=== PATIENT | male | born 1960 | race Caucasian/White ===

== ENCOUNTER → 2019-08-26 14:53 | Outpatient (BNVA) | payer MEDICARE, MEDICAID, SELFPAY | PROVIDERS: Family Provider Nurse Practitioner Family; PCP Nurse Practitioner Family; Visit Provider Anesthesiology | DX: G89.29 Other chronic pain (principal); M48.062 Spinal stenosis, lumbar region with neurogenic claudication; F17.210 Nicotine dependence, cigarettes, uncomplicated; Z79.891 Long term (current) use of opiate analgesic; Z71.6 Tobacco abuse counseling | CPT/HCPCS: 99214 ==

== ENCOUNTER → 2019-10-16 11:00 | Outpatient (BNVA) | payer MEDICARE, MEDICAID, SELFPAY | PROVIDERS: Family Provider Nurse Practitioner Family; PCP Nurse Practitioner Family; Visit Provider Nurse Practitioner Family | DX: E11.9 Type 2 diabetes mellitus without complications (principal); E78.2 Mixed hyperlipidemia; I10 Essential (primary) hypertension; S89.91XA Unspecified injury of right lower leg, initial encounter; M79.672 Pain in left foot; B37.2 Candidiasis of skin and nail; E55.9 Vitamin D deficiency, unspecified; M77.32 Calcaneal spur, left foot; Z96.651 Presence of right artificial knee joint | CPT/HCPCS: 73590; 73630; 80053; 80061; 81001; 82306; 83036; 84443; 85025 ==

== ENCOUNTER → 2019-12-03 10:55 | Outpatient (BNVA) | payer MEDICARE, MEDICAID, SELFPAY | PROVIDERS: Family Provider Nurse Practitioner Family; PCP Nurse Practitioner Family; Visit Provider Nurse Practitioner Family | DX: S46.911A Strain of unspecified muscle, fascia and tendon at shoulder and upper arm level, right arm, initial encounter (principal); S39.012A Strain of muscle, fascia and tendon of lower back, initial encounter; M54.9 Dorsalgia, unspecified; G89.29 Other chronic pain; L98.9 Disorder of the skin and subcutaneous tissue, unspecified; X58.XXXA Exposure to other specified factors, initial encounter | CPT/HCPCS: 73030 ==

== ENCOUNTER → 2019-12-16 09:56 | Outpatient (BNVA) | payer MEDICARE, MEDICAID, SELFPAY | PROVIDERS: Family Provider Nurse Practitioner Family; PCP Nurse Practitioner Family; Visit Provider Nurse Practitioner | DX: G89.29 Other chronic pain (principal); M54.42 Lumbago with sciatica, left side; M54.41 Lumbago with sciatica, right side; M48.062 Spinal stenosis, lumbar region with neurogenic claudication; M54.9 Dorsalgia, unspecified; F17.210 Nicotine dependence, cigarettes, uncomplicated; Z79.891 Long term (current) use of opiate analgesic; Z71.6 Tobacco abuse counseling | CPT/HCPCS: 99214 ==

== ENCOUNTER → 2019-12-24 14:00 | Outpatient (BNVA) | payer MEDICARE, MEDICAID, SELFPAY | PROVIDERS: Family Provider Nurse Practitioner Family; PCP Nurse Practitioner Family; Visit Provider Nurse Practitioner Family | DX: L08.9 Local infection of the skin and subcutaneous tissue, unspecified (principal); M79.5 Residual foreign body in soft tissue | CPT/HCPCS: 87070; 87077; 87186 ==

== ENCOUNTER 2019-12-25 15:18 | Outpatient (CLI) | payer MEDICARE, MEDICAID, SELFPAY ==
--- NOTE | 2019-12-25 16:00 | MR_ITS ---
WS: [id number] MRI LUMBAR SPINE NONCONTRAST TECHNIQUE: Sagittal T1, T2 and STIR imaging. Axial T1 and T2 imaging. CLINICAL INFORMATION: M48.062 Spinal stenosis, lumbar region with neurogenic cl... COMPARISON: None. FINDINGS: Mild lumbar curve. No acute compression. Disc bulging L2-L3, L3-L4, and L4-L5 with central canal sten osis. L1-L2: No significant disc bulging. Spinal canal and foramen are patent. Mild facet arthropathy. L2-L3: Mild disc bulging with moderate to severe central canal stenosis. Crowding of the cauda equina nerve rootlets. Mild bilateral foraminal narrowing. Moderate facet arthropathy. L3-L4: Disc osteophyte complex with endplate ridging. Severe central canal stenosis. Moderate facet a rthropathy. Moderate right and no significant left foraminal narrowing. L4-L5: Mild disc bulging with impingement on the traversing L5 nerve roots bilaterally. Moderate cent ral canal stenosis. Moderate facet arthropathy. Moderate left and mild right foraminal narrowing. L5-S1: Mild disc bulging with osteophytic ridging. Mild central canal stenosis. Impingement on the tr aversing right S1 nerve root. Mild right and no significant left foraminal narrowing. Visualized pelvic bony structures: Normal. Paravertebral soft tissues: Normal. MR/MR lumbar spine wo con* [id number] IMPRESSION: 1. Mild lumbar curve. No acute compression. 2. Moderate to severe central canal stenosis L2-L3, L3-L4 and L4-L5. This is s evere at L3-4. Crowding of the cauda equina nerve rootlets. 3. Mild central canal stenosis L5-S1 with impingement on the right S1 nerve ro ot and mild right foraminal narrowing. 4. Moderate left L4-5 foraminal narrowing impinges the exiting left L4 nerve r oot. 5. Moderate to advanced facet arthropathy L3-L5.
== END 2019-12-25 15:19 | disposition home or self-care (01) ==
LOC: RADSHAW 15:24
PROVIDERS: PCP Nurse Practitioner Family; Visit Provider Nurse Practitioner
DX: M48.062 Spinal stenosis, lumbar region with neurogenic claudication (principal); M48.07 Spinal stenosis, lumbosacral region; M47.816 Spondylosis without myelopathy or radiculopathy, lumbar region
CPT/HCPCS: 72148

== ENCOUNTER → 2020-02-10 10:04 | Outpatient (BNVA) | payer MEDICARE, MEDICAID, SELFPAY | PROVIDERS: PCP Nurse Practitioner Family; Visit Provider Nurse Practitioner | DX: G89.29 Other chronic pain (principal); M48.062 Spinal stenosis, lumbar region with neurogenic claudication; M54.9 Dorsalgia, unspecified; F17.210 Nicotine dependence, cigarettes, uncomplicated; Z79.891 Long term (current) use of opiate analgesic | CPT/HCPCS: 99213; 99214 ==

== ENCOUNTER → 2020-02-11 14:56 | Outpatient (BNVA) | payer MEDICARE, MEDICAID, SELFPAY | PROVIDERS: PCP Nurse Practitioner Family; Visit Provider Nurse Practitioner Family | DX: E11.9 Type 2 diabetes mellitus without complications (principal); I10 Essential (primary) hypertension; E78.2 Mixed hyperlipidemia; E55.9 Vitamin D deficiency, unspecified; R06.02 Shortness of breath; J22 Unspecified acute lower respiratory infection; H60.90 Unspecified otitis externa, unspecified ear; J30.89 Other allergic rhinitis; H10.9 Unspecified conjunctivitis; H10.10 Acute atopic conjunctivitis, unspecified eye; R42 Dizziness and giddiness | CPT/HCPCS: 71046; 80053; 80061; 81003; 82306; 83036; 83735; 84100; 84443; 85007; 85027 ==

== ENCOUNTER → 2020-03-16 13:38 | Outpatient (BNVA) | payer MEDICARE, MEDICAID, SELFPAY | PROVIDERS: PCP Nurse Practitioner Family; Referring Provider Nurse Practitioner Family; Visit Provider Internal Medicine | DX: E11.22 Type 2 diabetes mellitus with diabetic chronic kidney disease (principal); N18.2 Chronic kidney disease, stage 2 (mild); E11.42 Type 2 diabetes mellitus with diabetic polyneuropathy; E11.59 Type 2 diabetes mellitus with other circulatory complications; I25.10 Atherosclerotic heart disease of native coronary artery without angina pectoris; E66.9 Obesity, unspecified; E78.5 Hyperlipidemia, unspecified; I10 Essential (primary) hypertension | CPT/HCPCS: 99204 ==

== ENCOUNTER → 2020-04-13 08:28 | Outpatient (BNVA) | payer MEDICARE, MEDICAID, SELFPAY | PROVIDERS: PCP Nurse Practitioner Family; Visit Provider Anesthesiology | DX: G89.29 Other chronic pain (principal); M48.062 Spinal stenosis, lumbar region with neurogenic claudication; M54.9 Dorsalgia, unspecified; F17.210 Nicotine dependence, cigarettes, uncomplicated; Z79.891 Long term (current) use of opiate analgesic | CPT/HCPCS: 99213; 99214 ==

== ENCOUNTER → 2020-06-15 08:55 | Outpatient (BNVA) | payer MEDICARE, MEDICAID, SELFPAY | PROVIDERS: PCP Nurse Practitioner Family; Visit Provider Anesthesiology | DX: G89.29 Other chronic pain (principal); M48.062 Spinal stenosis, lumbar region with neurogenic claudication; M54.9 Dorsalgia, unspecified; F17.210 Nicotine dependence, cigarettes, uncomplicated; Z79.891 Long term (current) use of opiate analgesic | CPT/HCPCS: 99213 ==

== ENCOUNTER → 2020-08-13 10:09 | Outpatient (BNVA) | payer MEDICARE, MEDICAID, SELFPAY | PROVIDERS: PCP Nurse Practitioner Family; Visit Provider Nurse Practitioner | DX: G89.29 Other chronic pain (principal); M25.511 Pain in right shoulder; M25.512 Pain in left shoulder; M54.9 Dorsalgia, unspecified; M54.2 Cervicalgia; M48.062 Spinal stenosis, lumbar region with neurogenic claudication; S13.4XXA Sprain of ligaments of cervical spine, initial encounter; X58.XXXA Exposure to other specified factors, initial encounter; F17.210 Nicotine dependence, cigarettes, uncomplicated; Z79.891 Long term (current) use of opiate analgesic; Z71.6 Tobacco abuse counseling | CPT/HCPCS: 99213 ==

== ENCOUNTER 2020-08-19 09:29 | Outpatient (CLI) | payer MEDICARE, MEDICAID, SELFPAY ==
--- NOTE | 2020-08-19 09:30 | XR_ITS ---
WS: [id number] CERVICAL SPINE 6 VIEWS HISTORY: M79.601 - Pain in right arm COMPARISON: None available. TECHNIQUE: AP, oblique and lateral radiographs. Lateral in neutral, flexion and extension. 2 mm retrolisthesis of C3. No fractures. Mild disc space narrowing and endplate hypertrophic osteophy mayela. No fractures. With flexion and extension there is no instability. Bilateral facet joint arthriti s. Lateral masses of C1 and C2 are aligned and the odontoid process is intact. XR/XR cervical spine 4-5V [id number] IMPRESSION: 1. No cervical spine fracture or instability. 2. C3 retrolisthesis by 2 mm with no instability.
--- NOTE | 2020-08-19 10:30 | XR_ITS ---
WS: [id number] LEFT SHOULDER: 3 VIEW(S) TECHNIQUE: Internal and external rotation with Y view. HISTORY: M25.511 - Pain in right shoulder COMPARISON: None available. Moderate narrowing of the AC joint with numerous anchors are present in the humeral head from rotator cuff repair. Mildly high riding humeral head with mild narrowing of the glenohumeral joint. XR/XR shoulder LT min 2V* [id number] IMPRESSION: 1. Numerous anchors in the LEFT humeral head from prior rotator cuff repair. 2. Moderate AC joint and glenohumeral joint arthritis. 3. Prior CABG.
--- NOTE | 2020-08-19 11:00 | XR_ITS ---
WS: [id number] RIGHT SHOULDER: 3 VIEW(S) TECHNIQUE: Internal and external rotation with Y view. HISTORY: M25.511 - Pain in right shoulder COMPARISON: 12/03/2019 Moderate narrowing of the RIGHT AC joint with hypertrophic osteophytes extending superior and inferio r from the joint line. Humeral head is high riding nearly abutting the undersurface of the acromion. Mild narrowing of the g lenohumeral joint. XR/XR shoulder RT min 2V* [id number] IMPRESSION: 1. Moderate osteoarthritis at the RIGHT AC joint is similar to prior studies. 2. High riding humeral head indicating likelihood of rotator cuff tear. Simila r to the prior study.
== END 2020-08-19 09:30 | disposition home or self-care (01) ==
PROVIDERS: PCP Nurse Practitioner Family; Visit Provider Nurse Practitioner
DX: M79.601 Pain in right arm (principal); M79.602 Pain in left arm; M25.511 Pain in right shoulder; M25.512 Pain in left shoulder; M19.011 Primary osteoarthritis, right shoulder; Z95.1 Presence of aortocoronary bypass graft
CPT/HCPCS: 72050; 73030

== ENCOUNTER 2020-09-16 15:56 | Outpatient (CLI) | payer MEDICARE, MEDICAID, SELFPAY ==
--- NOTE | 2020-09-16 16:45 | MR_ITS ---
WS: [id number] MRI RIGHT SHOULDER HISTORY: PAIN IN RIGHT SHOULDER COMPARISON: None available. TECHNIQUE: Multiplanar sequences of the shoulder joint are submitted. Severe degenerative changes at the AC joint. Hypertrophic osteophytes with joint space narrowing. Flu id along the AC ligament. Osteophytes encroach upon the supraspinatus muscle and tendon. Osteophytes actually above the humeral head. Humeral head is high riding with remodeling of the acromion. Numerou s subchondral cystic changes in the posterior lateral humeral head. No os acromion. Biceps tendon is not identified in the bicipital groove. Complete tear of the supraspinatus tendon. Tendon is retracted medial to the humeral head and there a re cystic changes along the remaining subscapularis tendon. There is edema and severe atrophy of the supraspinatus muscle. Cannot identify the subscapularis tendon distally. There is a large amount of e hipolito and fluid surrounding the distal subscapularis tendon with atrophy of the muscle. Distal infrasp inatus tendon is probably intact although there is fluid along the tendon sheath. Teres minor is norm al. Complete loss of the cartilage. The glenoid is diffusely abnormal. MR/MR shoulder RT wo con* [id number] IMPRESSION: 1. Severe AC joint and glenohumeral joint arthritis with loss of joint space a nd cartilage. 2. High riding humeral head abutting the acromion and causing remodeling. 3. Complete tears of the supraspinatus and subscapularis tendons with retracti on and muscle atrophy. 4. Loss of the normal labrum. 5. Biceps tendon is torn or dislocated.
--- NOTE | 2020-09-16 17:30 | MR_ITS ---
WS: [id number] MRI CERVICAL SPINE NONCONTRAST HISTORY: CERVICAL DISC DISORDER, UNSPECIFIED COMPARISON: 12/27/2017 Technique: Multiplanar, multisequence noncontrast imaging of the cervical spine. Normal cervical alignment. No marrow edema or fracture. Disc spaces are mildly desiccated throughout the cervical spine. No inferior displacement of cerebell ar tonsils. Mild enlargement of the visualized ventricles. Craniocervical junction, C1 and C2 relationship, odontoid process and soft tissues are normal. C2-C3: Very mild LEFT foraminal narrowing due to osteophyte disease. C3-C4: Mild disc bulging with slight effacement of the ventral thecal sac. Mild LEFT foraminal narrow ing due to osteophyte disease. C4-C5: Diffuse annular disc bulging with a tiny central disc protrusion. Facet joint arthritis and os teophytes causing mild central and bilateral foraminal stenosis. C5-C6: Mild annular disc bulging is slightly asymmetric to the LEFT. Flattening of the ventral CSF. M ild central and bilateral foraminal stenosis, greater on the LEFT. C6-C7: Diffuse annular disc bulging with disc osteophytes. Mild central stenosis with mild to moderat e bilateral foraminal stenosis. C7-T1: Mild annular disc bulging and osteophytic ridging. No significant stenosis. Paraspinal soft tissue are normal. MR/MR cervical spin wo con* [id number] IMPRESSION: 1. No significant progression of degenerative spondylitic changes in the cervi joseph spine since 12/27/2017. 2. Mild to moderate bilateral foraminal stenosis at C6-7 with mild central ilene nosis. 3. Mild central and bilateral foraminal stenosis at C4-5 and C5-6. 4. Mild LEFT foraminal stenosis at C3-4.
== END 2020-09-16 15:57 | disposition home or self-care (01) ==
PROVIDERS: PCP Nurse Practitioner Family; Visit Provider Nurse Practitioner
DX: M50.90 Cervical disc disorder, unspecified, unspecified cervical region (principal); M48.02 Spinal stenosis, cervical region; M75.121 Complete rotator cuff tear or rupture of right shoulder, not specified as traumatic; M13.811 Other specified arthritis, right shoulder
CPT/HCPCS: 72141; 73221

== ENCOUNTER → 2020-09-22 11:36 | Outpatient (BNVA) | payer MEDICARE, MEDICAID, SELFPAY | PROVIDERS: PCP Nurse Practitioner Family; Visit Provider Nurse Practitioner Family | DX: E11.9 Type 2 diabetes mellitus without complications (principal); I10 Essential (primary) hypertension; E78.2 Mixed hyperlipidemia; E55.9 Vitamin D deficiency, unspecified; F33.1 Major depressive disorder, recurrent, moderate; Z12.5 Encounter for screening for malignant neoplasm of prostate | CPT/HCPCS: 80053; 80061; 81003; 82306; 83036; 83735; 84100; 84443; 85025; G0103 ==

== ENCOUNTER → 2020-09-28 10:34 | Outpatient (BNVA) | payer MEDICARE, MEDICAID, SELFPAY | PROVIDERS: PCP Nurse Practitioner Family; Visit Provider Nurse Practitioner Family | DX: E11.9 Type 2 diabetes mellitus without complications (principal); F17.210 Nicotine dependence, cigarettes, uncomplicated; Z12.11 Encounter for screening for malignant neoplasm of colon; E55.9 Vitamin D deficiency, unspecified | CPT/HCPCS: 81003; 82043 ==

== ENCOUNTER → 2020-09-30 13:18 | Outpatient (BNVA) | payer MEDICARE, MEDICAID, SELFPAY | PROVIDERS: PCP Nurse Practitioner Family; Visit Provider Nurse Practitioner Family | DX: M48.062 Spinal stenosis, lumbar region with neurogenic claudication (principal); M47.896 Other spondylosis, lumbar region | CPT/HCPCS: 72114 ==

== ENCOUNTER → 2020-10-07 10:46 | Outpatient (BNVA) | payer MEDICARE, MEDICAID, SELFPAY | PROVIDERS: PCP Nurse Practitioner Family; Visit Provider Nurse Practitioner | DX: G89.29 Other chronic pain (principal); M54.9 Dorsalgia, unspecified; M25.511 Pain in right shoulder; S13.4XXA Sprain of ligaments of cervical spine, initial encounter; M79.601 Pain in right arm; M79.602 Pain in left arm; M48.062 Spinal stenosis, lumbar region with neurogenic claudication; X58.XXXA Exposure to other specified factors, initial encounter; F17.210 Nicotine dependence, cigarettes, uncomplicated; Z79.891 Long term (current) use of opiate analgesic | CPT/HCPCS: 99213 ==

== ENCOUNTER → 2020-10-12 15:05 | Outpatient (BNVA) | payer MEDICARE, MEDICAID, SELFPAY | PROVIDERS: PCP Nurse Practitioner Family; Visit Provider Internal Medicine | DX: Z01.812 Encounter for preprocedural laboratory examination (principal); Z12.11 Encounter for screening for malignant neoplasm of colon; F17.210 Nicotine dependence, cigarettes, uncomplicated | CPT/HCPCS: 87635 ==

== ENCOUNTER 2020-10-18 07:26 | Day surgery (SDC) | payer MEDICARE, MEDICAID, SELFPAY ==
--- NOTE | 2020-10-18 07:42 | ANES.PREANE2 ---
Pre-Anesthetic Assessment Pre-Anesthetic Assessment: Height/Weight: Height 1.85 m Weight 103.419 kg Preop Diagnosis: Screening Proposed Procedure: Operation Date: 10/18/20 09:00 Proposed Procedures p Colonoscopy g0121 z12.11(Not Applicable) - Chavo Chahal MD Familial anesthetic complications: None Was Beta Lucero taken within 24 hours: Yes (take carvedilol at 1000 or 1100, took it last night) Was Clonidine taken within 24 hours: N/A Last intake: NPO > 8 hrs Social: Social History: Tobacco Exam: Pre-Anes Outpt Exam: alert, oriented x 3, clear to auscultation bilaterally and regular rate & rhythm Airway: Cervical ROM: WNL MP: 2 Dentition: False Pulmonary: Pulmonary: COPD (mild) CV/HEM: CV/HEM: CAD and HTN Comments: CABG 2005 - : : Chronic renal Insufficiency Metabolic: Metabolic: Hyperlipidemia Musc/skel: Musc/skel: Lower Back Pain Comments: b/l shoulder pain - willl have patient move onto side and get in comfortable position before inducing anesthesia to reduce risk MSK injury Anesthetic Plan: ASA status: 3 Anesthesia: MAC Risk of > 500 ml blood loss (7ml/kg in children): No PFSH Anesthesia PFSH: Medical History Aortic cusp regurgitation Burn of finger CAD (coronary artery disease) Cauda equina compression Changing skin lesion Chronic back pain Chronic idiopathic constipation Colon cancer screening COPD (chronic obstructive pulmonary disease) Diabetes mellitus Diabetic neuropathy Encounter for long-term opiate analgesic use Environmental and seasonal allergies GERD (gastroesophageal reflux disease) Hyperlipidemia associated with type 2 diabetes mellitus Hypertension Mixed hyperlipidemia Shortness of breath Spinal stenosis, lumbar region with neurogenic claudication Tobacco dependence due to cigarettes Vitamin D deficiency Surgical History H/O total knee replacement total knee right 2017 total knee left 2017 Previous back surgery S/P CABG (coronary artery bypass graft) 2005 S/P shoulder surgery left shoulder 2007 Family History Father CAD (coronary artery disease) Cancer lung Mother Cancer breast Denies family history of Anesthesia complication Social History Smoking and tobacco status: current every day smoker cigarettes Packs smoked per day: 1 Years cigarettes smoked: 12 Quit status (tobacco): considering quitting Second hand smoke exposure: Yes Smoking risk assessment/counseling performed?: No Alcohol intake: never Desire information about alcohol rehabilitation?: No Counseling given: No Desire information about substance/drug rehabilitation?: No Counseling given: No Lives independently: Yes Household members: significant other History of recent travel: No Data Anesthesia Cardiac Studies: No Data to Display
[2020-10-18 08:12] VITALS: BP 120/68; PULSE 63; RESP 18; TEMP 36.1; O2SAT 97
[2020-10-18] MEDS: sodium chloride 0.9% 1,000 ML 30 ML IV (08:18)
[2020-10-18 08:23] LABS: Glucose Point of Care 309 mg/dL (70-110)
--- NOTE | 2020-10-18 08:54 | W.PM.OPSFHP ---
Same Day Surgery H&P Indication for Procedure/HPI DATE OF PROCEDURE: October 18, 2020 CHIEF COMPLAINT/INDICATIONFOR SURGICAL PROCEDURE: Routine screening average risk PREOP DIAGNOSIS: screen PLANNED PROCEDRUE: Operation Date: 10/18/20 09:00 Proposed Procedures p Colonoscopy g0121 z12.11(Not Applicable) - Chavo Chahal MD Medications/Allergies* Home Medications Medication Instructions Recorded Confirmed Type aspirin 81 mg tablet,delayed 81 mg PO DAILY 09/21/20 10/15/20 History release duloxetine 60 mg capsule,delayed 60 mg PO DAILY 09/21/20 10/18/20 History release sprinkle semaglutide 3 mg tablet 3 mg PO DAILY 09/28/20 10/18/20 History omeprazole 40 mg capsule,delayed 40 mg PO DAILY 10/07/20 10/18/20 History release Allergies/Adverse Reactions Allergy/AdvReac Type Severity Reaction Status Date / Time Penicillins Allergy Intermediate rash Verified 10/18/20 08:04 codeine Allergy Mild rash Verified 10/18/20 08:04 cefazolin Allergy Unknown rash Verified 10/18/20 08:04 Current Medications: Generic Name Dose Route Start Last Admin Trade Name Freq PRN Reason Stop Dose Admin Sodium Chloride 1,000 mls @ 30 mls/hr 10/18/20 08:00 10/18/20 08:18 Sodium Chloride 0.9% IV 30 mls/hr .Q24H SCOTTY Administration Pertinent History/Comorbid Conditions* Medical History (Updated 10/14/20 @ 13:22 by Martinez Wu MD) Aortic cusp regurgitation Burn of finger CAD (coronary artery disease) Cauda equina compression Changing skin lesion Chronic back pain Chronic idiopathic constipation Colon cancer screening COPD (chronic obstructive pulmonary disease) Diabetes mellitus Diabetic neuropathy Encounter for long-term opiate analgesic use Environmental and seasonal allergies GERD (gastroesophageal reflux disease) Hyperlipidemia associated with type 2 diabetes mellitus Hypertension Mixed hyperlipidemia Shortness of breath Spinal stenosis, lumbar region with neurogenic claudication Tobacco dependence due to cigarettes Vitamin D deficiency Surgical History (Updated 03/16/20 @ 14:15 by Silvana Adkins MD) H/O total knee replacement total knee right 2017 total knee left 2016 Previous back surgery S/P CABG (coronary artery bypass graft) 2005 S/P shoulder surgery left shoulder 2007 Family History (Updated 03/16/20 @ 13:51 by Justina Berger LPN) Father CAD (coronary artery disease) Father Cancer Father lung Mother breast Denies family history of Anesthesia complication Social History Smoking and tobacco status: current every day smoker cigarettes Packs smoked per day: 1 Years cigarettes smoked: 12 Quit status (tobacco): considering quitting Second hand smoke exposure: Yes Smoking risk assessment/counseling performed?: No Alcohol intake: never Desire information about alcohol rehabilitation?: No Counseling given: No Desire information about substance/drug rehabilitation?: No Counseling given: No Lives independently: Yes Household members: significant other History of recent travel: No Pertinent Exam Findings alert, oriented x 3, clear to auscultation bilaterally, regular rate & rhythm, operative site marked and procedure specific exam findings Recommendations Surgery/Procedure today Coding Level of Care Code 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
[2020-10-18 10:44] VITALS: BP 102/66; PULSE 68; RESP 16; TEMP 36.3; O2SAT 95
--- NOTE | 2020-10-18 10:47 | ANE.PACU2 ---
Inpatient post-anesthesia follow up: Airway intact: Yes Vital signs: Temperature 96.9 F Pulse Rate 63 Respiratory Rate 18 Blood Pressure 120/68 Pulse Oximetry 97 Oxygen Delivery Me thod Room Air Oxygen Flow Rate Fraction of Inspir ed Oxygen Hydration adequate: Yes Nausea and vomiting: No Pain level: 1 Mental status: Baseline
[2020-10-18 10:59] VITALS: BP 148/85; PULSE 62; RESP 18; TEMP 36.5; O2SAT 96
== END 2020-10-18 11:22 | disposition home or self-care (01) ==
PROVIDERS: PCP Nurse Practitioner Family; Visit Provider Internal Medicine
PROC: 0DJD8ZZ Inspection of Lower Intestinal Tract, Via Natural or Artificial Opening Endoscopic (ICD-10-PCS; CPT 45378; principal; 2020-10-18 09:00)
DX: Z12.11 Encounter for screening for malignant neoplasm of colon (principal); I25.10 Atherosclerotic heart disease of native coronary artery without angina pectoris; Z79.82 Long term (current) use of aspirin; J44.9 Chronic obstructive pulmonary disease, unspecified; E11.40 Type 2 diabetes mellitus with diabetic neuropathy, unspecified; K21.9 Gastro-esophageal reflux disease without esophagitis; I10 Essential (primary) hypertension; E78.2 Mixed hyperlipidemia; F17.210 Nicotine dependence, cigarettes, uncomplicated
CPT/HCPCS: 36416; 82962; 96360; 96361; G0121; J2704; J7030

== ENCOUNTER 2020-10-27 16:11 | Outpatient (CLI) | payer MEDICARE, MEDICAID, SELFPAY ==
--- NOTE | 2020-10-27 17:30 | MR_ITS ---
WS: [id number] MRI THORACIC SPINE WITHOUT CONTRAST TECHNIQUE: Sagittal T1, T2 and STIR imaging. Axial T2 imaging. Noncontrast imaging obtained. CLINICAL INFORMATION: M54.6 - Pain in thoracic spine COMPARISON: MRI 7 FINDINGS: Mild thoracic kyphosis. No acute compression. No high-grade central canal narrowing. Cord signal is n ormal. A few tiny disc protrusions in the mid thoracic spine. Anterior hypertrophic changes in the mi d and lower thoracic spine.Incidental left perineural cyst at T8. Chronic anterior wedging at T7-T9. Small shallow central protrusions more prominent at T2-T3, T8-T9, T9-T10, and T12-L1. Mild to moderat e bony foraminal narrowing worse at bilateral T5-T6, bilateral T9-T10, right T10-11, bilateral T11-12 and left T12-L1. Moderate facet arthropathy in the lower thoracic spine Adrenal Glands are normal. MR/MR thoracic spin wo con* [id number] IMPRESSION: 1. Moderate thoracic kyphosis. No high-grade central canal narrowing. Cord sig nal is normal. 2. Shallow central disc protrusions not significantly changed since 2018 witho ut significant central canal stenosis. 3. Mild to moderate bony foraminal narrowing described above.
== END 2020-10-27 16:12 | disposition home or self-care (01) ==
LOC: RADSHAW 16:14
PROVIDERS: PCP Nurse Practitioner Family; Visit Provider Nurse Practitioner
DX: M40.294 Other kyphosis, thoracic region (principal); M51.24 Other intervertebral disc displacement, thoracic region
CPT/HCPCS: 72146

== ENCOUNTER → 2020-12-10 09:59 | Outpatient (BNVA) | payer MEDICARE, MEDICAID, SELFPAY | PROVIDERS: PCP Nurse Practitioner Family; Visit Provider Nurse Practitioner | DX: G89.29 Other chronic pain (principal); M48.062 Spinal stenosis, lumbar region with neurogenic claudication; S39.012A Strain of muscle, fascia and tendon of lower back, initial encounter; M54.9 Dorsalgia, unspecified; S13.4XXA Sprain of ligaments of cervical spine, initial encounter; M25.511 Pain in right shoulder; M79.601 Pain in right arm; M79.602 Pain in left arm; E11.42 Type 2 diabetes mellitus with diabetic polyneuropathy; F17.210 Nicotine dependence, cigarettes, uncomplicated; X58.XXXA Exposure to other specified factors, initial encounter; Z71.6 Tobacco abuse counseling | CPT/HCPCS: 99213; 99214 ==

== ENCOUNTER → 2021-02-16 14:55 | Outpatient (BNVA) | payer MEDICARE, MEDICAID, SELFPAY | PROVIDERS: PCP Nurse Practitioner Family; Visit Provider Anesthesiology | DX: G89.29 Other chronic pain (principal); M48.062 Spinal stenosis, lumbar region with neurogenic claudication; M54.6 Pain in thoracic spine; M50.30 Other cervical disc degeneration, unspecified cervical region; F17.210 Nicotine dependence, cigarettes, uncomplicated; Z79.891 Long term (current) use of opiate analgesic | CPT/HCPCS: 99213 ==

== ENCOUNTER → 2021-04-15 08:41 | Outpatient (BNVA) | payer MEDICARE, MEDICAID, SELFPAY | PROVIDERS: PCP Nurse Practitioner Family; Visit Provider Anesthesiology | DX: G89.29 Other chronic pain (principal); M54.6 Pain in thoracic spine; M48.062 Spinal stenosis, lumbar region with neurogenic claudication; M50.30 Other cervical disc degeneration, unspecified cervical region; X58.XXXA Exposure to other specified factors, initial encounter; S39.012A Strain of muscle, fascia and tendon of lower back, initial encounter; F17.200 Nicotine dependence, unspecified, uncomplicated; Z79.891 Long term (current) use of opiate analgesic; Z71.6 Tobacco abuse counseling | CPT/HCPCS: 99214 ==

== ENCOUNTER → 2021-05-16 14:17 | Outpatient (BNVA) | payer MEDICARE, MEDICAID, SELFPAY | PROVIDERS: PCP Nurse Practitioner Family; Visit Provider Internal Medicine | DX: E11.42 Type 2 diabetes mellitus with diabetic polyneuropathy (principal); E11.59 Type 2 diabetes mellitus with other circulatory complications; E11.69 Type 2 diabetes mellitus with other specified complication; E11.22 Type 2 diabetes mellitus with diabetic chronic kidney disease; N18.2 Chronic kidney disease, stage 2 (mild); I25.10 Atherosclerotic heart disease of native coronary artery without angina pectoris; I10 Essential (primary) hypertension; E78.5 Hyperlipidemia, unspecified; E66.9 Obesity, unspecified; Z79.4 Long term (current) use of insulin; Z79.84 Long term (current) use of oral hypoglycemic drugs; Z68.31 Body mass index [BMI] 31.0-31.9, adult; F17.200 Nicotine dependence, unspecified, uncomplicated | CPT/HCPCS: 99214 ==

== ENCOUNTER → 2021-06-14 10:51 | Outpatient (BNVA) | payer MEDICARE, MEDICAID, SELFPAY | PROVIDERS: PCP Nurse Practitioner Family; Visit Provider Anesthesiology | DX: G89.29 Other chronic pain (principal); M54.50 Low back pain, unspecified; M54.6 Pain in thoracic spine; M48.062 Spinal stenosis, lumbar region with neurogenic claudication; S13.4XXA Sprain of ligaments of cervical spine, initial encounter; M50.30 Other cervical disc degeneration, unspecified cervical region; F17.210 Nicotine dependence, cigarettes, uncomplicated; Z79.891 Long term (current) use of opiate analgesic; X58.XXXA Exposure to other specified factors, initial encounter | CPT/HCPCS: 99214 ==

== ENCOUNTER → 2021-08-15 14:15 | Outpatient (BNVA) | payer MEDICARE, MEDICAID, SELFPAY | PROVIDERS: PCP Nurse Practitioner Family; Visit Provider Internal Medicine | DX: E11.22 Type 2 diabetes mellitus with diabetic chronic kidney disease (principal); E11.65 Type 2 diabetes mellitus with hyperglycemia; E11.42 Type 2 diabetes mellitus with diabetic polyneuropathy; E11.69 Type 2 diabetes mellitus with other specified complication; N18.2 Chronic kidney disease, stage 2 (mild); E78.2 Mixed hyperlipidemia; E11.59 Type 2 diabetes mellitus with other circulatory complications; I25.10 Atherosclerotic heart disease of native coronary artery without angina pectoris; E78.5 Hyperlipidemia, unspecified; E66.9 Obesity, unspecified; Z79.4 Long term (current) use of insulin; Z79.84 Long term (current) use of oral hypoglycemic drugs; F17.210 Nicotine dependence, cigarettes, uncomplicated; Z68.35 Body mass index [BMI] 35.0-35.9, adult | CPT/HCPCS: 99214 ==

== ENCOUNTER → 2021-10-18 12:14 | Outpatient (BNVA) | payer MEDICARE, MEDICAID, SELFPAY | PROVIDERS: PCP Nurse Practitioner Family; Visit Provider Nurse Practitioner Family | DX: E11.65 Type 2 diabetes mellitus with hyperglycemia (principal); E11.42 Type 2 diabetes mellitus with diabetic polyneuropathy; M54.9 Dorsalgia, unspecified; G89.29 Other chronic pain; E11.22 Type 2 diabetes mellitus with diabetic chronic kidney disease; E78.2 Mixed hyperlipidemia; N18.2 Chronic kidney disease, stage 2 (mild) | CPT/HCPCS: 83036 ==

== ENCOUNTER → 2021-10-19 08:05 | Outpatient (BNVA) | payer MEDICAID, SELFPAY | PROVIDERS: PCP Nurse Practitioner Family; Visit Provider Nurse Practitioner Family | DX: E11.65 Type 2 diabetes mellitus with hyperglycemia (principal); E11.42 Type 2 diabetes mellitus with diabetic polyneuropathy; M54.9 Dorsalgia, unspecified; G89.29 Other chronic pain; E11.22 Type 2 diabetes mellitus with diabetic chronic kidney disease; E78.2 Mixed hyperlipidemia; N18.2 Chronic kidney disease, stage 2 (mild) | CPT/HCPCS: 80053; 80061 ==

== ENCOUNTER → 2022-01-05 13:27 | Outpatient (BNVA) | payer MEDICAID, SELFPAY | PROVIDERS: PCP Nurse Practitioner Family; Visit Provider Nurse Practitioner | DX: M79.671 Pain in right foot (principal); M20.31 Hallux varus (acquired), right foot | CPT/HCPCS: 73630 ==

== ENCOUNTER → 2022-02-01 13:57 | Outpatient (BNVA) | payer MEDICARE, MEDICAID, SELFPAY | PROVIDERS: PCP Nurse Practitioner Family; Visit Provider Thoracic Surgery (Cardiothoracic Vascular Surgery) | DX: E11.621 Type 2 diabetes mellitus with foot ulcer (principal); L97.512 Non-pressure chronic ulcer of other part of right foot with fat layer exposed; I96 Gangrene, not elsewhere classified | CPT/HCPCS: 11042; 99203; 99213; A6250 ==

== ENCOUNTER → 2022-02-08 13:25 | Outpatient (BNVA) | payer MEDICARE, MEDICAID, SELFPAY | PROVIDERS: PCP Nurse Practitioner Family; Visit Provider Thoracic Surgery (Cardiothoracic Vascular Surgery) | DX: E11.621 Type 2 diabetes mellitus with foot ulcer (principal); L97.512 Non-pressure chronic ulcer of other part of right foot with fat layer exposed; I96 Gangrene, not elsewhere classified | CPT/HCPCS: 11042 ==

== ENCOUNTER 2022-02-21 10:15 | Outpatient (CLI) | payer MEDICARE, MEDICAID, SELFPAY ==
--- NOTE | 2022-02-21 11:15 | USR_ITS ---
PROCEDURE INFORMATION: Exam: US Duplex Right Lower Extremity Arteries Or Arterial Bypass Grafts Exam date and time: 02/21/2022 10:52 AM Age: 61 years old Clinical indication: Condition or disease; Other: Foot ulcer; Additional info: E11.621 - type 2 diabetes mellitus with foot ulcer TECHNIQUE: Imaging protocol: Right Real-time duplex scan of the arteries or arterial bypass grafts of the right lower extremity with 2-D murphy scale, color Doppler flow and spectral waveform analysis. Images documented and saved. COMPARISON: CR XR foot RT min 3V* [id number] 01/05/2022 1:30 PM FINDINGS: Right external iliac artery: No occlusion or significant stenosis. Monophasic waveform. Right common femoral artery: No occlusion or significant stenosis. Monophasic waveform. No pseudoaneurysm in the inguinal region. Right superficial femoral artery: No occlusion or significant stenosis. Monophasic waveform. Right popliteal artery: No occlusion or significant stenosis. Monophasic waveform. Right calf/foot arteries: No occlusion or significant stenosis in the posterior tibial artery. Monophasic waveforms. There is occlusion of the proximal dorsalis pedis artery and reconstitution distally. Soft tissues: No hematoma or collection. Other findings: KARYN: 0.37 US/[place] [id number] IMPRESSION: Occlusion of the proximal right dorsalis pedis artery, with distal reconstitution. Otherwise no occlusion or significant stenosis in the right lower extremity arteries.
== END 2022-02-21 10:16 | disposition home or self-care (01) ==
LOC: RAD 10:16
PROVIDERS: PCP Nurse Practitioner Family; Visit Provider Thoracic Surgery (Cardiothoracic Vascular Surgery)
DX: E11.621 Type 2 diabetes mellitus with foot ulcer (principal); L97.509 Non-pressure chronic ulcer of other part of unspecified foot with unspecified severity; I77.1 Stricture of artery
CPT/HCPCS: 93926

== ENCOUNTER 2022-03-09 07:40 | Outpatient (CLI) | payer MEDICARE, MEDICAID, SELFPAY ==
--- NOTE | 2022-03-09 08:00 | CT_ITS ---
WS: [id number] CT ANGIOGRAPHY OF THE ABDOMINAL AORTA WITH RUNOFF TO THE ANKLES HISTORY: I73.9 - Peripheral vascular disease, unspecified TECHNIQUE: Arterial injection is performed during imaging to evaluate the aorta and runoff vessels to the ankles. MIP and volume rendering imaging has also been performed. All images are reviewed. All C T scans at [facility] use at least one of these dose optimization techniques: automated exposu re control; mA and/or kV adjustment per patient size (includes targeted exams where dose is matched t o clinical indication); or iterative reconstruction. Contrast: Omnipaque 350; 95 mL IV. DLP: 1391.63 mGy.cm COMPARISON: None available. Lung bases are clear. Normal size heart. Atherosclerosis aorta. No aneurysms. Intimal thickening and calcified plaque just above the level of the bifurcation. Mild atherosclerosis celiac axis and SMA but no stenosis. More extensive calcificati on in the splenic artery. Small caliber but patent renal arteries. AJ is intact with calcification. RIGHT lower extremity arterial system: Extensive calcified plaque beginning at the level of the bifur cation extending into the internal and external iliac arteries with multifocal areas of stenosis and irregular plaque. Completely occluded internal iliac artery. Extensive plaque continues into the femo ral artery, SFA and deep profunda. Near-complete occlusion at the proximal SFA. There are additional areas throughout the SFA where there is no contrast identified within the lumen of the artery. Heavil y diseased artery continues to Mil's canal and the popliteal artery. Very poor runoff below the le bala of the knee. Small caliber arteries. LEFT lower extremity arterial system: Heavily diseased atherosclerotic plaque throughout the common i liac artery into the internal/external iliac arteries. There is dense calcified plaque with a high-gr karina stenosis distal common iliac artery. Multifocal areas of moderate stenosis in the external iliac artery through the femoral artery. High-grade stenosis at the origin of the femoral artery. There is extensive plaque and very small caliber SFA. Completely occluded proximally. Reconstitution near Yeager er's canal is intermittently visualized. Popliteal artery is obscured by artifact from the knee prost hesis. Likely calcified arteries below the knee. Small caliber arteries. Cannot confirm contrast enha ncement below the knee with certainty. Liver and spleen and pancreas are negative. Normal gallbladder. 6 mm LEFT adrenal myelolipoma. Normal RIGHT adrenal gland. No ascites or adenopathy. Small retroperitoneal lymph nodes are unremarkable in appearance. No GI tract obstruction. Extensive sigmoid diverticulosis without acute diverticulitis. Normal urinary bladder. CT/CT angio abd aorta runof [id number] IMPRESSION: 1. No abdominal aortic aneurysm. 2. Moderate plaque abdominal aorta with extension into the mesenteric arteries . No high-grade stenosis. 3. Extensive plaque beginning in the RIGHT common iliac artery through the pop liteal artery with extensive multifocal areas of stenosis at all levels. Near-c omplete occlusion at the proximal SFA. 4. Poor runoff below the knees bilaterally. Popliteal arteries are obscured by artifact from the knee prostheses. Heavily diseased arteries are small caliber . 5. Multi focal atherosclerotic plaque throughout the LEFT common iliac artery to the popliteal artery. Numerous stenosis in the femoral and superficial femor al artery. 6. Complete occlusion LEFT SFA.
[2022-03-09 08:33] LABS: Blood Urea Nitrogen 14 mg/dL (8-23); Glomerular Filtration Rate 97.6 mL/min (90-130)
[2022-03-09] MEDS: iohexol 350 mg/mL 100 mL Btl IV (09:11)
== END 2022-03-09 07:41 | disposition home or self-care (01) ==
LOC: RAD 07:43
PROVIDERS: PCP Nurse Practitioner Family; Visit Provider Thoracic Surgery (Cardiothoracic Vascular Surgery)
DX: E11.621 Type 2 diabetes mellitus with foot ulcer (principal); L97.512 Non-pressure chronic ulcer of other part of right foot with fat layer exposed; I73.9 Peripheral vascular disease, unspecified; I70.8 Atherosclerosis of other arteries
CPT/HCPCS: 75635; 82565; 84520; 97597; A6250

== ENCOUNTER → 2022-03-15 13:40 | Outpatient (BNVA) | payer MEDICARE, MEDICAID, SELFPAY | PROVIDERS: PCP Nurse Practitioner Family; Visit Provider Thoracic Surgery (Cardiothoracic Vascular Surgery) | DX: I96 Gangrene, not elsewhere classified (principal); E11.621 Type 2 diabetes mellitus with foot ulcer; L97.512 Non-pressure chronic ulcer of other part of right foot with fat layer exposed | CPT/HCPCS: 97597 ==

== ENCOUNTER → 2022-03-22 13:46 | Outpatient (BNVA) | payer MEDICARE, MEDICAID, SELFPAY | PROVIDERS: PCP Nurse Practitioner Family; Visit Provider Thoracic Surgery (Cardiothoracic Vascular Surgery) | DX: I96 Gangrene, not elsewhere classified (principal); E11.621 Type 2 diabetes mellitus with foot ulcer; L97.512 Non-pressure chronic ulcer of other part of right foot with fat layer exposed | CPT/HCPCS: 97597 ==

== ENCOUNTER → 2022-04-05 11:18 | Outpatient (BNVA) | payer MEDICARE, MEDICAID, SELFPAY | PROVIDERS: PCP Nurse Practitioner Family; Visit Provider Internal Medicine Cardiovascular Disease | DX: I73.9 Peripheral vascular disease, unspecified (principal); I25.10 Atherosclerotic heart disease of native coronary artery without angina pectoris; E08.621 Diabetes mellitus due to underlying condition with foot ulcer; Z79.4 Long term (current) use of insulin; L97.501 Non-pressure chronic ulcer of other part of unspecified foot limited to breakdown of skin; Z79.84 Long term (current) use of oral hypoglycemic drugs; F17.210 Nicotine dependence, cigarettes, uncomplicated; I12.9 Hypertensive chronic kidney disease with stage 1 through stage 4 chronic kidney disease, or unspecified chronic kidney disease; N18.9 Chronic kidney disease, unspecified; I35.1 Nonrheumatic aortic (valve) insufficiency; E78.2 Mixed hyperlipidemia; I96 Gangrene, not elsewhere classified; E11.621 Type 2 diabetes mellitus with foot ulcer; L97.512 Non-pressure chronic ulcer of other part of right foot with fat layer exposed | CPT/HCPCS: 11042; 99214; A6250 ==

== ENCOUNTER → 2022-04-19 10:13 | Outpatient (BNVA) | payer MEDICARE, MEDICAID, SELFPAY | PROVIDERS: PCP Nurse Practitioner Family; Visit Provider Thoracic Surgery (Cardiothoracic Vascular Surgery) | DX: I96 Gangrene, not elsewhere classified (principal); E11.621 Type 2 diabetes mellitus with foot ulcer; L97.512 Non-pressure chronic ulcer of other part of right foot with fat layer exposed | CPT/HCPCS: 11042; A6250 ==

== ENCOUNTER 2022-04-21 09:00 | Observation (INO) | payer MEDICARE, MEDICAID, SELFPAY ==
[2022-04-21] VITALS (66 sets, daily range): BP systolic 135–182; BP diastolic 62–112; PULSE 48–65; RESP 7–24; TEMP 36.8–37.4; O2SAT 90–99; BMI 31.1
--- NOTE | 2022-04-21 06:00 | XACV_ITS ---
Ht: 183 cm Wt: 104 kg BSA: 2.33 m2 Any Known Allergies: Cephalosporines Gender: Male : 1960 Exam Type: Invasive Peripheral Vascular Procedure(s): Procedure Description: Peripheral Cath Diagnostic Procedure Procedure Description: Peripheral vascular Intervention Procedure Description: PV Atherectomy Exam Priority: Routine Abdominal Diagnostic Findings Patient has a long history of poorly controlled diabetes, continued tobacco abuse with unwillingness to quit. Ulcer has developed on the right foot. CTA has been been significantly abnormal with SFA and popliteal disease identified on the right. Angiography was suggested and recommended. The aortogram reveals mild luminal irregularities of the distal abdominal aorta. Patient has kyphoscoliosis. The left common iliac artery has a 60 to 70% stenosis. The left external iliac artery contains luminal irregularities as does the left common femoral artery. The left internal iliac artery is open. The procedure is performed from the left common iliac artery. The remainder of the left lower extremity vasculature was not imaged.. On the right, there are luminal irregularities in the common iliac, external iliac and common femoral though all are patent. The internal iliac is patent. The profunda femoris is patent. The superficial femoral artery is heavily calcified from beginning to end. Effectively, the artery is occluded in the midportion. There is fairly extensive collateral flow from the profunda femoris system to the distal SFA and the popliteal. The popliteal is patent. There is a prosthetic knee joint in place which obscures the visualization of the popliteal artery. There is a 70 or 80% discrete stenosis in the popliteal just as it nears the knee joint. The popliteal is patent until the anterior tibial comes off. The anterior tibial is patent for short while and then appears to be occluded. The posterior tibial is patent to the ankle. I do not see the peroneal artery patent all the way to the ankle.. Lower Extremity Interventional Findings With a great deal of difficulty I was able to place a 0.35 mm wire through the occlusion, past the popliteal artery and into the posterior tibial. I was unable to pass a balloon past the origin of the superficial femoral artery due to the heavy calcification of the entire vessel. I was able to place a seeker catheter over the wire and down into the popliteal artery. I then exchanged this for an atherectomy wire. An atherectomy was performed of the proximal and mid superficial femoral artery. This closed the artery completely and probably created a dissection. I was then unable to pass a wire down the superficial femoral artery. He still had the collateral vessels intact and so I terminated the procedure. I will speak to the surgeon Dr. Berger who follows him in the wound clinic and see if there is a surgical option. At this point there is not an interventional option.. Conclusions Occluded superficial femoral artery on the right with unsuccessful attempt at atherectomy.. Hemodynamic Data Phase:Rest AO : 61.0 / 13.0 ( 35.0 ) @ 7:16:00 AM 77.0 / 12.0 ( 37.0 ) @ 7:20:00 AM 109.0 / 18.0 ( 49.0 ) @ 8:08:00 AM Access Site Site: Left Femoral artery Sheath Size: 6 Fr Hemost... Success: Unsuccessful Procedure Details Findings Procedure Consent Obtained. Pre-Procedure Time Out. Identified patient by full name and date of as verbalized by the patient/guarantor. Does the consent match the physician's order: Yes. Accurate & Complete Informed Consent: Yes. Inpatient/Outpatient History & Physical on Chart: Yes. If H&P is completed, is and addenduem needed: No; If yes, is the addendum complete: N/A. Visualize and Verify Site with Patient/Guarantor: N/A. Relevant Radiology Images available: Yes. The risks, benefits, and alternatives of sedation and/or procedure were discussed by physician. The patient agrees to continue. Procedure started. Correct patient, site and procedure confirmed by cath team. PERRLA. Strong, equal hand credit checker bilaterally. Lungs clear x 5 lobes. IV Site on Arrival: 20 gauge in the right anticubital. Pre Procedural Pulses: right posterior tibial was Doppled. Pre Procedural Pulses: right dorsalis pedis was Doppled. Pre Procedural Pulses: left posterior tibial was 1+. Pre Procedural Pulses: left dorsalis pedis was 1+. Oxygen started at 2 liters/min via nasal canula. right groin was prepped with chloroprep then draped in the usual sterile fashion. left groin was prepped with chloroprep then draped in the usual sterile fashion. Physician notified. Baseline sample Acquired. HR: 41 BPM. Physician arrived. Physician scrubbed in. Time out performed with cath team. Admit Source: Out Patient. Lidocaine 1% infiltrated to the left groin. A 5FrFr UF catheter in over wire. standard wire out. Catheter out. A 5FrFr RIM catheter in over wire. standard wire out. Right common iliac selected and arteriogram with runoff performed @ 10 mL/sec for a total of 30 mL. RIM catheter and wire removed. short 6F sheath exchanged for 45 cm 6F flexer sheath. Glidewire inserted. Seeker inserted over the glidewire. Balloon inserted over the wire to the popliteal. Balloon out over wire. unable to cross lesion with balloon. Seeker inserted over the glidewire. glidewire out. viper wire inserted over seeker. seeker removed. 1.5 mm diamondback inserted over viperwire to mid SFA. orbital athrectomy perfromed to mid SFA. Diamondback and wire out. Post intervention angiography performed to check result. seeker and glidewire in. seeker and glidewire out. standard wire inserted. 6FR flexer exchanged for 6F short sheeth. Sheath(s) sutured into position with 2-0 silk and sterile 4x4's and Op-site applied over the site. No oozing or signs and symptoms of hematoma noted. heparin drip started per protoclol. Post Procedure: Pulses reassessed and unchanged. PERRLA. Strong, equal hand credit checker bilaterally. Total IV fluids: 100 mL. Fluoro: 0:00. Complications: none. Estimated blood loss: 5mL-10mL. Responsiveness - Normal response to verbal stimuli; alert and oriented, PERRLA. Airway - Unaffected, no intervention required; spontaneous ventilation. Circulation: W/N/L, pulses unchanged. Nausea/Vomiting: No. Procedure completed. Patient transferred by bed to 1st floor. Vital chart was stopped. Procedure Medications Start: 7:06 AM Stop: 7:06 AM Medication: Versed Amount: 1 mg Route: I.V. Start: 7:06 AM Stop: 7:06 AM Medication: Fentanyl Amount: 50 mcg Route: I.V. Start: 7:11 AM Stop: 7:11 AM Medication: Versed Amount: 1 mg Route: I.V. Start: 7:51 AM Stop: 7:51 AM Medication: Fentanyl Amount: 25 mcg Route: I.V. Start: 7:52 AM Stop: 7:52 AM Medication: Versed Amount: 1 mg Route: I.V. Start: 7:57 AM Stop: 7:57 AM Medication: Heparin Amount: 5000 units Route: I.V. Start: 8:04 AM Stop: 8:04 AM Medication: Versed 1 mg and Fentanyl 25 mcg Start: 8:30 AM Stop: 8:30 AM Medication: Versed 1 mg and Fentanyl 25 mcg I, the attending physician, have reviewed and verified all procedure medications. Yes, all medications given per verbal order History/Risk Factors Hypertension: Yes Dyslipidemia: Yes Peripheral Arterial Disease (PAD): Yes Obesity: No Tobacco Use: Current/Recent(w/in 1 year) Prior Interventions PCI: No CABG: Yes Valve Surgery: No Report Signatures Finalized by Dr. Giorgio Cota MD on 04/21/2022 01:01 PM
[2022-04-21] MEDS: diphenhydrAMINE 50 mg Capsule PO (06:37)
[2022-04-21 06:41] LABS: Basophils % 0.6 %; Eosinophils # 0.2 10^3/uL (0.0-0.8); Eosinophils % 2.7 %; Hematocrit 39.8 % (42.0-52.0); Lymphocytes # 1.6 10^3/uL (0.8-4.8); Lymphocytes % 25.8 %; Mean Corpuscular HGB Conc 32.7 g/dL (30.0-36.0); Mean Corpuscular Hemoglobin 29.9 pg (28.0-34.0); Mean Corpuscular Volume 91.5 fl (80-94); Mean Platelet Volume 10.2 fL (7.4-10.4); Monocytes # 0.5 10^3/uL (0.2-0.9); Monocytes % 8.2 %; Neutrophils # 3.85 10^3/uL (1.8-7.7); Neutrophils % 62.2 %; Nucleated Red Blood Cells % 0 %; Platelet Count 256 10^3/cmm (130-400); Red Blood Count 4.35 10^6/uL (4.1-5.3); Red Cell Distribution Width 13.7 % (12.1-15.1); White Blood Count 6.2 10^3/uL (4.0-10.0)
--- NOTE | 2022-04-21 06:45 | W.PM.OPSUD ---
Surgery/Procedure H&P Update DATE OF PROCEDURE: April 21, 2022 DATE H&P PERFORMED: 04/05/22 CHANGES TO PREVIOUS DOCUMENTATION: None PREOP DIAGNOSIS: PAD PRIMARY INDICATION FOR PROCEDURE: Lower extremity PAD with abnormal CTA, foot ulcer, smoking PLANNED PROCEDURE: Operation Date: 04/21/22 07:00 Proposed Procedures p Bilateral angiography of the lower extremity with attention to the right 69019,I73.9(Bilateral) - Giorgio Cota MD
[2022-04-21 06:55] LABS: Anion Gap 16.6 (5-19); Blood Urea Nitrogen 15 mg/dL (8-23); Calcium 8.8 mg/dL (8.5-10.5); Carbon Dioxide 23 mmol/L (22-29); Chloride 102 mmol/L (98-107); Glomerular Filtration Rate 97.6 mL/min (90-130); Glucose 177 mg/dL (65-115); Osmolality Calculated 289 mOsm/kg (285-295); Potassium 4.6 mmol/L (3.5-5.1); Sodium 137 mmol/L (136-145)
[2022-04-21 06:55] LABS: Glucose Point of Care 182 mg/dL (70-110)
--- NOTE | 2022-04-21 09:33 | PC.NURSE ---
received from cardiac yard laborer at 0900 via bed.report received.pt is sedated.vss.sb on monitor.left femoral arterial sheath intact to pressurized system.drsg is dry and intact.no hematoma noted.left leg and foot is warm to touch and with brisk capillary refill.right foot is cool to touch.unable to dopple pulses in right or left foot.dr fernandez aware.heparin drip infusing at 29 mls/hr.
[2022-04-21] MEDS: lisinopril 20 mg Tablet PO (10:20)
[2022-04-21] MEDS: aspirin 81 mg EC Tablet PO (10:20)
[2022-04-21] MEDS: carvedilol 6.25 mg Tablet PO ×2 (10:20→17:59)
[2022-04-21] MEDS: fluticasone nasal spray 16gm Btl 1 SPRAY INTRANASAL (10:21)
[2022-04-21] MEDS: clindamycin 150 mg Capsule 300 MG PO ×2 (10:21→17:59)
[2022-04-21] MEDS: atorvastatin 40 mg Tablet PO ×2 (10:21→17:59)
[2022-04-21] MEDS: sodium chloride 0.9% 1,000 ML 100 ML IV (10:23)
[2022-04-21] MEDS: ropinirole 0.25 mg Tablet 0.5 MG PO ×2 (10:28→20:56)
[2022-04-21] MEDS: sertraline 100 mg Tablet PO (10:28)
[2022-04-21] MEDS: pantoprazole DR 40 mg Tablet PO (10:28)
[2022-04-21 11:45] LABS: Glucose Point of Care 141 mg/dL (70-110)
[2022-04-21] MEDS: alum-mag-hydroxide-sime 30 mL UDC PO (13:00)
[2022-04-21] MEDS: oxyCODONE IR 30 mg Tablet 15 MG PO (13:00)
[2022-04-21] MEDS: gabapentin 400 mg Capsule 800 MG PO ×2 (16:11→20:56)
--- NOTE | 2022-04-21 16:32 | PM.MISC ---
Miscellaneous Note Note: Patient had an attempted intervention of his right superficial femoral artery early this morning. The procedure was unsuccessful and the artery closed and there was a dissection distally. Collateral flow was still present after the surgery but likely debris down the collaterals lessened the vigorousness of the flow into the foot. The patient's leg was slightly cool from a few centimeters above his ankle down to the toes upon his arrival back to the floor. Over the next several hours, while on intravenous heparin, the foot warmed up and became much less dusky. About 2 hours ago, the patient developed some fairly severe pain in the lateral aspect of the right foot. He also developed some mottling of the toes and the forefoot. At that point I spoke with Dr. Berger again who was kind enough to review the films with me while we were on the telephone. He was then good enough to come in and see the patient with me. By the time he arrived the mottling had essentially resolved and patient's foot remains fairly warm. He is still having some discomfort. In looking at the vascular anatomy with Dr. Beregr there does not appear to be a good option for revascularization surgically. For now, since things are improving, I will load him with Plavix and continue daily Plavix and also add cilostazol. I will continue the heparin drip for at least 2 more hours until the medications are on board. At that point I will discontinue the heparin then pulled the sheath.
--- NOTE | 2022-04-21 16:39 | PC.NURSE ---
dr murillo and dr fernandez assessed pt ...decision to attempt medical management , as opposed to surgical intervention discussed with pt.received orders to load with plavix,begin pletal.dc heparin 2 hours after meds given..then check ptt.
[2022-04-21] MEDS: clopidogrel 300 mg Tablet 600 MG PO (16:49)
[2022-04-21] MEDS: cilostazol 100 mg Tablet PO (17:59)
--- NOTE | 2022-04-21 19:08 | PC.NURSE ---
pt returned from laborer salvage with heparin drip infusing at 29 mls/hr.heparin drip dc'd at [address] fernandez.will draw ptt in 2 hrs
--- NOTE | 2022-04-21 20:59 | PC.NURSE ---
Received bedside report from ADRIANNA Larsen. Patient is s/p peripheral angiogram with left groin access. Sheath remains in place. Dressing is c,d,i with no s/s of bleeding or hematoma formation observed. Heparin drip stopped at 1900. Patient has mottling to right foot to ankle and is cool to touch. Dr Cota and Dr Berger are aware of this. Instructed patient on needed labs and sheath removal. Patient verbalized complete understanding. Will continue to monitor.
[2022-04-21 22:25] LABS: Partial Thromboplastin Time 26.9 SECONDS (23.9-36.7)
[2022-04-21] MEDS: morphine 4 mg/mL SDV 1 mL 2 MG IVP (22:50)
--- NOTE | 2022-04-21 23:15 | PC.NURSE ---
PTT 26.9. Initiated sheath removal from left groin per protocol at 2247. Hemostasis achieved immediately. Maintained pressure for 20min. VS remained WNL. No s/s of bleeding or hematoma formation observed. Patient tolerated well Instructed patient on site care and restrictions. Patient verbalized complete understanding. Will continue to monitor.
[2022-04-22] VITALS (15 sets, daily range): BP systolic 128–178; BP diastolic 64–78; PULSE 46–54; RESP 11–20; TEMP 36.6; O2SAT 89–95
[2022-04-22] MEDS: oxyCODONE IR 30 mg Tablet 15 MG PO (03:51)
[2022-04-22 06:40] LABS: Glucose Point of Care 185 mg/dL (70-110)
--- NOTE | 2022-04-22 07:22 | PM.DCS ---
Discharge Providers Date of Admission: 04/21/22 09:00 Date of Discharge: April 22, 2022 Attending Provider at Admission: Giorgio Cota MD Attending Provider at Discharge: Giorgio Cota MD Primary Care Provider: JAI Galvez Diagnoses at Discharge Discharge Diagnosis (1) Peripheral arterial disease: Status: Acute (2) Diabetic neuropathy: Status: Acute (3) Diabetic ulcer of foot associated with diabetes mellitus due to underlying condition, limited to breakdown of skin: Status: Acute (4) Diabetic neuropathy: Status: Chronic Qualifiers: Diabetes mellitus type: type 2 Diabetes mellitus complication detail: diabetic polyneuropathy Qualified Code(s): E11.42 - Type 2 diabetes mellitus with diabetic polyneuropathy (5) Tobacco dependence due to cigarettes: Status: Chronic (6) Diabetes mellitus: Status: Chronic Qualifiers: Diabetes mellitus type: type 2 Diabetes mellitus mcc insulin use: without longitudinal float operator use Diabetes mellitus complication status: without complication Qualified Code(s): E11.9 - Type 2 diabetes mellitus without complications (7) CAD (coronary artery disease): Status: Chronic Qualifiers: Coronary Disease-Associated Artery/Lesion type: [place] artery [place] vs. transplanted heart: [place] heart Associated angina: without angina Qualified Code(s): I25.10 - Atherosclerotic heart disease of [place] coronary artery without angina pectoris (8) Hypertension: Status: Chronic Qualifiers: Hypertension type: essential hypertension Qualified Code(s): I10 - Essential (primary) hypertension (9) Mixed hyperlipidemia: Status: Acute (10) S/P CABG (coronary artery bypass graft): Status: Acute Permanent problem details: 2005 (11) CKD stage 2 due to type 2 diabetes mellitus: Status: Acute Reason for Visit Reason for Visit: I73.9 Brief History: Patient was admitted electively for angiography of the right lower extremity and possible intervention. He is a diabetic smoker with an abnormal lower extremity duplex and CTA with runoff. Hospital Course Hospital Course The right superficial femoral artery is occluded and heavily calcified. There is collateral flow with one-vessel runoff below the right knee. An atherectomy was attempted of the right superficial femoral artery. I was not able to pass even a deflated balloon into the vessel due to the presence of severe calcification. The atherectomy was unsuccessful and a portion of the vessel was probably dissected. After the procedure the patient developed some mottling. I spoke with Dr. Berger and he kindly came into observe the patient. His foot was warm and intermittently mottled. We kept him on heparin for several hours. I loaded him with Plavix and cilostazol. The following morning the foot is mildly mottled and somewhat cool to the touch. There have never been any pulses. Dr. Berger and I discussed the potential for surgical revascularization. At this point there is no option for catheter-based revascularization and the only option would be surgical for femoral-popliteal bypass. Because the foot was intermittently warm we decided to try to hold off. This morning the patient is anxious to leave the hospital due to deer hunting. I told him that he would likely need to come back because his foot is not well-perfused. I suspect he will have worsening pain and will come back sooner rather than later. He does have an appointment this coming Sunday 4 days from now in the wound clinic with Dr. Berger. I have implored him to keep this appointment if he does not come back to the hospital. At this time, there are only 2 options for him. 1 is surgical revascularization. The other is amputation. The left groin is without bleeding, hematoma or other vascular anomaly. Physical Exam Narrative: GENERAL: In general he is comfortable and has a minimal amount of pain in the right foot HEENT: Exam within normal limits. NECK: Supple without jugular vein distention. The carotid upstroke is normal without bruits. BACK: Exam normal. LUNGS: Clear. HEART: Regular rate and rhythm. ABDOMEN: Benign without organomegaly or tenderness. EXTREMITIES: No edema. The right foot is cool from below the ankle down to the toes. There is minimal mottling. No pulses in the right foot. NEUROLOGIC: Exam normal. SKIN: Unremarkable. Discharge Data Studies Completed and Pending Completed Studies During Hospitalization Category Date Time Status FRONT OFFICE AGENT request for service Routine Exams 04/21/22 06:00 Completed Laboratory Results WBC 6.2 10^3/uL (4.0-10.0) 04/21/22 06:23 RBC 4.35 10^6/uL (4.1-5.3) 04/21/22 06:23 Hgb 13.0 g/dL (11.7-16.6) 04/21/22 06:23 Hct 39.8 % (42.0-52.0) L 04/21/22 06:23 MCV 91.5 fl (80-94) 04/21/22 06:23 MCH 29.9 pg (28.0-34.0) 04/21/22 06:23 MCHC 32.7 g/dL (30.0-36.0) 04/21/22 06:23 RDW 13.7 % (12.1-15.1) 04/21/22 06:23 Plt Count 256 10^3/cmm (130-400) 04/21/22 06:23 MPV 10.2 fL (7.4-10.4) 04/21/22 06:23 Neut % (Auto) 62.2 % 04/21/22 06:23 Lymph % (Auto) 25.8 % 04/21/22 06:23 [place] % (Auto) 8.2 % 04/21/22 06:23 Eos % (Auto) 2.7 % 04/21/22 06:23 Baso % (Auto) 0.6 % 04/21/22 06:23 Neut # (Auto) 3.85 10^3/uL (1.8-7.7) 04/21/22 06:23 Lymph # (Auto) 1.6 10^3/uL (0.8-4.8) 04/21/22 06:23 [place] # (Auto) 0.5 10^3/uL (0.2-0.9) 04/21/22 06:23 Eos # (Auto) 0.2 10^3/uL (0.0-0.8) 04/21/22 06:23 Baso # (Auto) 0.0 10^3/uL (0.0-0.1) 04/21/22 06:23 Nucleated RBC % (auto) 0 % 04/21/22 06:23 Nucleated RBCs # 0.0 /100WBC 04/21/22 06:23 APTT 26.9 SECONDS (23.9-36.7) D 04/21/22 22:05 Sodium 137 mmol/L (136-145) 04/21/22 06:23 Potassium 4.6 mmol/L (3.5-5.1) 04/21/22 06:23 Chloride 102 mmol/L (98-107) 04/21/22 06:23 Carbon Dioxide 23 mmol/L (22-29) 04/21/22 06:23 Anion Gap 16.6 (5-19) 04/21/22 06:23 BUN 15 mg/dL (8-23) 04/21/22 06:23 Creatinine 0.8 mg/dL (0.7-1.2) 04/21/22 06:23 GFR Calculation 97.6 mL/min (90-130) 04/21/22 06:23 Glucose 177 mg/dL (65-115) H 04/21/22 06:23 POC Glucose 185 mg/dL (70-110) H 04/22/22 06:19 Calculated Osmolality 289 mOsm/kg (285-295) 04/21/22 06:23 Calcium 8.8 mg/dL (8.5-10.5) 04/21/22 06:23 Procedures Performed Lower extremity angiography with unsuccessful atherectomy of the right lower extremity, superficial femoral artery. Vitals Last Vital Signs Temp 97.9 F 04/22/22 04:30 Pulse 50 L 04/22/22 05:32 Resp 14 04/22/22 04:30 BP 178/73 04/22/22 04:30 Pulse Ox 92 04/22/22 04:30 O2 Del Method 04/21/22 11:53 Discharge Plan Discharge Patient Disposition: Home Condition: Stable Prescriptions: New cilostazol 100 mg Tablet 100 mg PO BID Qty: 60 0RF clopidogrel 75 mg Tablet 75 mg PO DAILY Qty: 30 0RF Continued aspirin 81 mg tablet,delayed release (DR/EC) 81 mg PO DAILY oxycodone 15 mg tablet 15 mg PO BID PRN (Reason: pain) 30 Days Qty: 60 0RF Rx Instructions: fill on or after 07/26/21 fluticasone propionate [Flonase Allergy Relief] 50 mcg/actuation spray,suspension 1 spray INTRANASAL BID 30 Days Qty: 16 5RF Lantus Solostar U-100 Insulin 100 unit/mL (3 mL) insulin pen 12 unit SUBCUT DAILY 90 Days Qty: 15 3RF Rx Instructions: take 12 units daily, max dose of 15 units per day (DME) OneTouch Ultra Test Strip See Rx Instructions .Route Qty: 100 3RF Rx Instructions: As directed (DME) diabetic shoes See Rx Instructions .Route .MEDSUPPLY Qty: 2 0RF Rx Instructions: As directed albuterol sulfate [Ventolin HFA] 90 mcg/actuation HFA aerosol inhaler See Rx Instructions .ROUTE .COMPLEX Qty: 18 2RF Dose Instruction: INHALE 2 INHALATIONS INTO LUNGS EVERY 6 HOURS NEEDED FOR SHORTNESS OF BREATH OR FOR WHEEZING Rx Instructions: INHALE 2 INHALATIONS INTO LUNGS EVERY 6 HOURS NEEDED FOR SHORTNESS OF BREATH OR FOR WHEEZING (DME) pen needle, diabetic [Comfort EZ Pen Adin] 32 gauge x 5/32 needle See Rx Instructions .ROUTE .COMPLEX Qty: 100 5RF Dose Instruction: USE DIRECTED Rx Instructions: USE DIRECTED carvedilol 6.25 mg tablet 6.25 mg PO BID Qty: 180 3RF Breo Ellipta 100-25 mcg/dose blister with device See Rx Instructions .ROUTE .COMPLEX Qty: 60 5RF Dose Instruction: USE 1 INHALATION EVERY 24 HOURS Rx Instructions: USE 1 INHALATION EVERY 24 HOURS (DME) blood sugar diagnostic Strip See Rx Instructions .Route Qty: 100 5RF Rx Instructions: USE ONE STRIP TO CHECK BLOOD SUGAR FOUR TIMES PER DAY baclofen 20 mg tablet 20 mg PO BID PRN (Reason: spasms) 90 Days Qty: 180 1RF lisinopril-hydrochlorothiazide 20-12.5 mg tablet See Rx Instructions .ROUTE .COMPLEX Qty: 30 2RF Dose Instruction: TAKE 1 TABLET BY MOUTH EVERY DAY FOR 30 DAYS Rx Instructions: TAKE 1 TABLET BY MOUTH EVERY DAY FOR 30 DAYS metformin 500 mg tablet See Rx Instructions .ROUTE .COMPLEX Qty: 120 2RF Dose Instruction: TAKE 2 TABLETS BY MOUTH TWICE DAILY Rx Instructions: TAKE 2 TABLETS BY MOUTH TWICE DAILY atorvastatin 80 mg tablet See Rx Instructions .ROUTE .COMPLEX Qty: 30 2RF Dose Instruction: TAKE ONE TABLET BY MOUTH EVERY DAY Rx Instructions: TAKE ONE TABLET BY MOUTH EVERY DAY glipizide 10 mg tablet extended release 24hr See Rx Instructions .ROUTE .COMPLEX Qty: 30 2RF Dose Instruction: TAKE ONE TABLET BY MOUTH DAILY Rx Instructions: TAKE ONE TABLET BY MOUTH DAILY ropinirole 0.5 mg tablet See Rx Instructions .ROUTE .COMPLEX Qty: 30 2RF Dose Instruction: TAKE ONE TABLET BY MOUTH AT BEDTIME Rx Instructions: TAKE ONE TABLET BY MOUTH AT BEDTIME sertraline 100 mg tablet See Rx Instructions .ROUTE .COMPLEX Qty: 30 2RF Dose Instruction: TAKE ONE TABLET BY MOUTH EVERY DAY Rx Instructions: TAKE ONE TABLET BY MOUTH EVERY DAY omeprazole 40 mg capsule,delayed release(DR/EC) See Rx Instructions .ROUTE .COMPLEX Qty: 30 2RF Dose Instruction: TAKE 1 CAPSULE BY MOUTH EVERY DAY Rx Instructions: TAKE 1 CAPSULE BY MOUTH EVERY DAY gabapentin 800 mg tablet 800 mg PO TID 90 Days Qty: 270 1RF clindamycin HCl 300 mg capsule 300 mg PO BID 7 Days Qty: 14 0RF Discharge Orders: Discharge Order (Routine); Ordered 04/22/22 Ordered By: Giorgio Cota Referrals: Delicia Gloria FNP [Nurse Practitioner] - 7-10 days (Right leg evaluation, left groin check, chemistry panel.) Discharge Diet: Diabetic Discharge Activity: Increase activity as tolerated and Limit activity as instructed Patient Instructions: Opioid Safety Activity Restrictions/Additional Instructions: No lifting over 5 pounds for 2 days. Return to the hospital for worsening pain of the right foot. Discharge Attestations Time Spent in Discharge Care*: greater than 30 min Quality Metrics Clinical Quality Measures [ No reported AMI, CVA or VTE this stay] Coding Level of Care Code Established Pt Acute Chg FW DC note Patient Type Established History Detailed Exam Detailed Medical Decision Making Moderate Complexity Diagnoses Peripheral arterial disease I73.9 Diabetic neuropathy E11.40 Diabetic ulcer of foot associated with diabetes mellitus due to underlying condition, limited to breakdown of skin E08.621; L97.501 Diabetic neuropathy E11.42 Diabetes mellitus type: type 2 Diabetes mellitus complication detail: diabetic polyneuropathy Tobacco dependence due to cigarettes F17.210 Diabetes mellitus E11.9 Diabetes mellitus type: type 2 Diabetes mellitus mcc insulin use: without longitudinal float operator use Diabetes mellitus complication status: without complication CAD (coronary artery disease) I25.10 Coronary Disease-Associated Artery/Lesion type: [place] artery [place] vs. transplanted heart: [place] heart Associated angina: without angina Hypertension I10 Hypertension type: essential hypertension Mixed hyperlipidemia E78.2 S/P CABG (coronary artery bypass graft) Z95.1 CKD stage 2 due to type 2 diabetes mellitus E11.22; N18.2
[2022-04-22] MEDS: cilostazol 100 mg Tablet PO (09:22)
[2022-04-22] MEDS: clindamycin 150 mg Capsule 300 MG PO (09:22)
[2022-04-22] MEDS: pantoprazole DR 40 mg Tablet PO (09:23)
[2022-04-22] MEDS: aspirin 81 mg EC Tablet PO (09:23)
[2022-04-22] MEDS: lisinopril 20 mg Tablet PO (09:23)
[2022-04-22] MEDS: gabapentin 400 mg Capsule 800 MG PO (09:23)
[2022-04-22] MEDS: sertraline 100 mg Tablet PO (09:23)
[2022-04-22] MEDS: clopidogrel 75 mg Tablet PO (09:23)
--- NOTE | 2022-04-22 11:59 | PC.NURSE ---
discharge instructions given and explained.pt verb understanding.discharged via w/c to exit at this time.girlfriend to drive pt home
== END 2022-04-22 12:00 | disposition home or self-care (01) ==
LOC: CSU 13:05
PROVIDERS: Internal Medicine Cardiovascular Disease; Admitting Provider Internal Medicine Cardiovascular Disease; PCP Nurse Practitioner Family; Visit Provider Internal Medicine Cardiovascular Disease
DX: I73.9 Peripheral vascular disease, unspecified (principal); E11.42 Type 2 diabetes mellitus with diabetic polyneuropathy; F17.210 Nicotine dependence, cigarettes, uncomplicated; I25.10 Atherosclerotic heart disease of native coronary artery without angina pectoris; I10 Essential (primary) hypertension; E78.2 Mixed hyperlipidemia; I77.1 Stricture of artery; Z95.1 Presence of aortocoronary bypass graft; E11.22 Type 2 diabetes mellitus with diabetic chronic kidney disease; I12.9 Hypertensive chronic kidney disease with stage 1 through stage 4 chronic kidney disease, or unspecified chronic kidney disease; N18.2 Chronic kidney disease, stage 2 (mild); E08.621 Diabetes mellitus due to underlying condition with foot ulcer; L97.501 Non-pressure chronic ulcer of other part of unspecified foot limited to breakdown of skin; Z79.01 Long term (current) use of anticoagulants
CPT/HCPCS: 36415; 36416; 37225; 75625; 75710; 80048; 82962; 85025; 85730; 96360; 96361; 99152; 99153; C1724; C1725; C1769; C1887; C1894; G0378; J1644; J2250; J2270; J3010; J3490; J7030; Q0163; Q9967

== ENCOUNTER → 2022-04-26 10:32 | Outpatient (BNVA) | payer MEDICARE, MEDICAID, SELFPAY | PROVIDERS: PCP Nurse Practitioner Family; Visit Provider Thoracic Surgery (Cardiothoracic Vascular Surgery) | DX: I96 Gangrene, not elsewhere classified (principal); E11.621 Type 2 diabetes mellitus with foot ulcer; L97.512 Non-pressure chronic ulcer of other part of right foot with fat layer exposed | CPT/HCPCS: 11042; A6250 ==

== ENCOUNTER 2022-04-27 03:02 | Emergency (ER) | payer MEDICARE, MEDICAID, SELFPAY ==
[2022-04-27] VITALS (10 sets, daily range): BP systolic 126–156; BP diastolic 74–111; PULSE 91–106; RESP 16–18; TEMP 36.7; O2SAT 90–96; BMI 31.1
--- NOTE | 2022-04-27 03:07 | USR_ITS ---
PROCEDURE INFORMATION: Exam: US Duplex Lower Extremity Arteries Exam date and time: 04/27/2022 3:31 AM Age: 61 years old Clinical indication: Pain; Leg, upper and leg, lower; Patient HX: ct/ct angio abd aorta runof [id number]. Impression: . 1. No abdominal aortic aneurysm. 2. Moderate plaque abdominal aorta with extension into the mesenteric arteries. No high-grade stenosis. 3. Extensive plaque beginning in the right common iliac artery through the popliteal artery with extensive multifocal areas of stenosis at all levels. Near-complete occlusion at the proximal sfa. 4. Poor runoff below the knees bilaterally. Popliteal arteries are obscured by artifact from the knee prostheses. Heavily diseased arteries are small caliber. 5. Multi focal atherosclerotic plaque throughout the left common iliac artery to the popliteal artery. Numerous stenosis in the femoral and superficial femoral artery. 6. Complete occlusion left sfa. ; Additional info: Leg pain TECHNIQUE: Imaging protocol: Real-time ultrasound scan of the arteries of the bilateral lower extremities with 2-D murphy scale, color Doppler flow and spectral waveform analysis. Images documented and saved. COMPARISON: CR XR foot RT min 3V* [id number] 01/05/2022 1:30 PM FINDINGS: Right external iliac artery: No occlusion or significant stenosis. Monophasic waveform. Right common femoral artery: No occlusion or significant stenosis. Monophasic waveform. Right superficial femoral artery: Occluded. Right popliteal artery: Reconstituted right popliteal artery. Monophasic waveform. Right calf/foot arteries: No flow identified in the left posterior tibial artery and dorsalis pedis artery. Left external iliac artery: No occlusion or significant stenosis. Monophasic waveform. Left common femoral artery: No occlusion or significant stenosis. Monophasic waveform. Left superficial femoral artery: Occluded proximal left superficial femoral artery. There is reconstitution of the mid and distal left superficial femoral artery. Monophasic waveforms. Left popliteal artery: Reconstituted left popliteal artery. Monophasic waveform. Left calf/foot arteries: No flow identified in the left posterior tibial artery and dorsalis pedis artery. US/[place] [id number] IMPRESSION: 1. Occluded right superficial femoral artery with reconstitution of the popliteal artery. 2. Occluded proximal left superficial femoral artery, with reconstitution of the mid and distal segments. 3. No flow identified in the bilateral posterior tibial and dorsalis pedis arteries.
--- NOTE | 2022-04-27 03:12 | W.ED.GENADLT ---
HPI - General Adult General: Chief complaint: Allergic Reaction Stated complaint: leg pain post op/poss. allergic reaction Time Seen by Provider: 04/27/22 03:03 Source: patient Mode of arrival: ambulatory Limitations: no limitations History of Present Illness: 61-year-old male who has extensive history of peripheral artery disease he had a CTA runoff few months ago showed extensive disease patient had an angiogram a week ago showed severe disease especially in the right leg I did attempt to pass a wire in place balloon but was unable to. Patient follows Dr. Berger had seen him yesterday he does have a chronic wound on his right foot likely from his peripheral artery disease. He has been on Plavix states he woke up this morning with severe right leg pain. States pain is sharp in nature rates it at 8 out of 10 he also had a full body rash denies any shortness of breath he did receive epinephrine in route and his rash is improved he got fentanyl as well as states pain is currently a 2 out of 10. Associated symptoms: Deny chest pain, dyspnea, headache(s), nausea, rash or vomiting Review of Systems Const: Denies: fever(s), chills, body aches or change in appetite Eyes: Denies: blurry vision or eye discomfort ENMT: Denies: throat pain or dental pain Card: Denies: chest pain Resp: Denies: dyspnea GI: Denies: abdominal pain, nausea, vomiting or diarrhea : Denies: dysuria Musc: Reports: extremity pain Skin/Breast: Denies: rash Neuro: Denies: headache(s) Psych: Denies: depression Jon/Lymph: Denies: easy bruising All/Imm: Denies: urticaria PFS ED PFSH: Medical History Aortic cusp regurgitation Burn of finger Bursitis CAD (coronary artery disease) Cauda equina compression Changing skin lesion Chronic back pain Chronic back pain greater than 3 months duration Chronic idiopathic constipation Chronic right ear pain Cigarette smoker motivated to quit CKD stage 2 due to type 2 diabetes mellitus Colon cancer screening COPD (chronic obstructive pulmonary disease) Coronary artery disease due to type 2 diabetes mellitus Cough DDD (degenerative disc disease), cervical Dermatitis Diabetes mellitus Diabetes type 2, uncontrolled Diabetic neuropathy Encounter for long-term (current) use of NSAIDs Encounter for long-term opiate analgesic use Environmental and seasonal allergies GERD (gastroesophageal reflux disease) Hearing loss Hyperlipidemia associated with type 2 diabetes mellitus Hypertension Left elbow pain Mixed hyperlipidemia Multiple exostoses Nicotine dependence Obesity (BMI 30.0-34.9) Oral infection Osteoarthritis, shoulder Paresthesias Peripheral arterial disease Rib pain on right side Rib pain on right side Rotator cuff disorder Shortness of breath Spinal stenosis, lumbar region with neurogenic claudication Swelling of left elbow Thoracic spine pain Tobacco dependence due to cigarettes Vitamin D deficiency Surgical History H/O total knee replacement total knee right 2017 total knee left 2017 Previous back surgery S/P CABG (coronary artery bypass graft) 2005 S/P shoulder surgery left shoulder 2007 Family History Father CAD (coronary artery disease) Cancer lung Mother Cancer breast Denies family history of Anesthesia complication Social History Smoking and tobacco status: current every day smoker cigarettes Packs smoked per day: 1 Years cigarettes smoked: 12 Quit status (tobacco): considering quitting Second hand smoke exposure: Yes Smoking risk assessment/counseling performed?: No Alcohol intake: never Desire information about alcohol rehabilitation?: No Counseling given: No Desire information about substance/drug rehabilitation?: No Counseling given: No Lives independently: Yes Household members: significant other History of recent travel: No Physical Exam Const: COMMON NORMALS: patient oriented x3 HENMT: COMMON NORMALS: normocephalic and atraumatic HEAD & SCALP: normocephalic and atraumatic Eye: COMMON NORMALS: Equal, round and reactive pupils present and EOMs intact bilaterally PUPIL: Yes Equal, round and reactive pupils present Neck/C-Spine: COMMON NORMALS: full ROM and supple Chest: COMMONS NORMALS: normal inspection of the chest and normal palpation of entire chest wall Resp: COMMON NORMALS: normal respiratory effort, No retractions, No use of accessory muscles and clear to auscultation bilaterally AUSCULTATION: clear to auscultation bilaterally Cardio: COMMON NORMALS: regular rate, regular rhythm and No murmurs present (Cardio) RATE: regular rate RHYTHM: regular rhythm GI: COMMON NORMALS: Normal to inspection, nondistended, normoactive bowel sounds present, Soft to palpation, non-tender and no masses PALPATION: Yes Soft to palpation Extremity: COMMON NORMALS: full ROM NARRATIVE EXTREMITY EXAM: Bilateral feet are cool to the touch not able to palpate pulses right foot is puplish hue Neuro: COMMON NORMALS: patient oriented x3, moves all extremities and no focal motor deficits Psych: COMMON NORMALS: mental status grossly normal, Normal thought process present and cooperative THOUGHT PROCESS: Normal thought process present Skin: COMMON NORMALS: no rashes or lesions noted and no wounds GENERAL SKIN EXAM: no rashes or lesions noted Course Vital Signs: Vital signs: Vital Signs Temperature 98.1 F 04/27/22 03:08 Pulse Rate 102 H 04/27/22 03:12 Respiratory Rate 17 04/27/22 03:12 Blood Pressure 145/82 04/27/22 03:30 Pulse Oximetry 90 04/27/22 03:30 Oxygen Delivery Me thod 04/27/22 03:30 MDM - General Adult Medical Decision Making Patient presents here with right leg pain his right foot is cold has a preparation to ultrasound was unable to see any flow in the posterior or dorsalis pedis patient started heparin drip I did speak to vascular surgery at [facility] and will transfer there for higher level care as we do not have CT surgery at this time. Lab Data 04/27/22 03:20 04/27/22 03:20 Radiology Impressions Duplex Scan Lower Extremity Artery 04/27/22 03:07 IMPRESSION: 1. Occluded right superficial femoral artery with reconstitution of the popliteal artery. 2. Occluded proximal left superficial femoral artery, with reconstitution of the mid and distal segments. 3. No flow identified in the bilateral posterior tibial and dorsalis pedis arteries. Laboratory Results WBC 23.9 10^3/uL (4.0-10.0) H 04/27/22 03:20 RBC 5.65 10^6/uL (4.1-5.3) H 04/27/22 03:20 Hgb 16.8 g/dL (11.7-16.6) H 04/27/22 03:20 Hct 50.2 % (42.0-52.0) 04/27/22 03:20 MCV 88.8 fl (80-94) 04/27/22 03:20 MCH 29.7 pg (28.0-34.0) 04/27/22 03:20 MCHC 33.5 g/dL (30.0-36.0) 04/27/22 03:20 RDW 13.5 % (12.1-15.1) 04/27/22 03:20 Plt Count 355 10^3/cmm (130-400) 04/27/22 03:20 MPV 10.1 fL (7.4-10.4) 04/27/22 03:20 Neut % (Auto) 86.4 % 04/27/22 03:20 Lymph % (Auto) 4.7 % 04/27/22 03:20 [place] % (Auto) 7.2 % 04/27/22 03:20 Eos % (Auto) 0.1 % 04/27/22 03:20 Baso % (Auto) 0.3 % 04/27/22 03:20 Neut # (Auto) 20.61 10^3/uL (1.8-7.7) H 04/27/22 03:20 Lymph # (Auto) 1.1 10^3/uL (0.8-4.8) 04/27/22 03:20 [place] # (Auto) 1.7 10^3/uL (0.2-0.9) H 04/27/22 03:20 Eos # (Auto) 0.0 10^3/uL (0.0-0.8) 04/27/22 03:20 Baso # (Auto) 0.1 10^3/uL (0.0-0.1) 04/27/22 03:20 Nucleated RBC % (auto) 0 % 04/27/22 03:20 Nucleated RBCs # 0.0 /100WBC 04/27/22 03:20 Sodium 131 mmol/L (136-145) L 04/27/22 03:20 Potassium 4.5 mmol/L (3.5-5.1) 04/27/22 03:20 Chloride 97 mmol/L (98-107) L 04/27/22 03:20 Carbon Dioxide 17 mmol/L (22-29) L 04/27/22 03:20 Anion Gap 21.5 (5-19) H 04/27/22 03:20 BUN 18 mg/dL (8-23) 04/27/22 03:20 Creatinine 0.9 mg/dL (0.7-1.2) 04/27/22 03:20 GFR Calculation 85.2 mL/min (90-130) L 04/27/22 03:20 Glucose 400 mg/dL (65-115) H 04/27/22 03:20 Calculated Osmolality 291 mOsm/kg (285-295) 04/27/22 03:20 Calcium 8.8 mg/dL (8.5-10.5) 04/27/22 03:20 Total Bilirubin 1.3 mg/dL (0.15-1.2) H 04/27/22 03:20 AST 20 U/L (0-40) 04/27/22 03:20 ALT 29 U/L (0-41) 04/27/22 03:20 Alkaline Phosphatase 86 U/L (40-130) 04/27/22 03:20 Total Protein 6.7 g/dL (6.6-8.7) 04/27/22 03:20 Albumin 3.4 g/dL (3.5-5.2) L 04/27/22 03:20 Globulin 3.3 g/dL (1.3-4.6) 04/27/22 03:20 Critical Care Time Critical Care Time: Critical Care Time: Yes Total Critical Care Time: 40 Attestation: The high probability of a clinically significant, sudden or life threatening deterioration of the patient's vascular system(s) required my full and direct attention, intervention and personal management. The critical care time is as shown. This time is in addition to time spent performing any reported procedures but includes the following: [x] Data and vital sign review and interpretation [x] Patient assessment, examination and intervention [x] Documentation [x] Medication orders and management Discharge Plan Discharge Patient Disposition: Xfer Short-Term Hosp Clinical Impression: Ischemic leg Condition: Stable Referrals: JAX Geronimo, MA[employer] [Primary Care Provider] - Coding Level of Care Code ED Station Inspector for Michaelg Fwd Exam Comprehensive
[2022-04-27 03:25] LABS: Basophils # 0.1 10^3/uL (0.0-0.1); Basophils % 0.3 %; Eosinophils % 0.1 %; Hematocrit 50.2 % (42.0-52.0); Hemoglobin 16.8 g/dL (11.7-16.6); Lymphocytes # 1.1 10^3/uL (0.8-4.8); Lymphocytes % 4.7 %; Mean Corpuscular HGB Conc 33.5 g/dL (30.0-36.0); Mean Corpuscular Hemoglobin 29.7 pg (28.0-34.0); Mean Corpuscular Volume 88.8 fl (80-94); Mean Platelet Volume 10.1 fL (7.4-10.4); Monocytes # 1.7 10^3/uL (0.2-0.9); Monocytes % 7.2 %; Neutrophils # 20.61 10^3/uL (1.8-7.7); Neutrophils % 86.4 %; Nucleated Red Blood Cells % 0 %; Platelet Count 355 10^3/cmm (130-400); Red Blood Count 5.65 10^6/uL (4.1-5.3); Red Cell Distribution Width 13.5 % (12.1-15.1); White Blood Count 23.9 10^3/uL (4.0-10.0)
[2022-04-27 03:46] LABS: Alanine Aminotransferase 29 U/L (0-41); Albumin Level 3.4 g/dL (3.5-5.2); Alkaline Phosphatase 86 U/L (40-130); Anion Gap 21.5 (5-19); Aspartate Amino Transferase 20 U/L (0-40); Blood Urea Nitrogen 18 mg/dL (8-23); Calcium 8.8 mg/dL (8.5-10.5); Carbon Dioxide 17 mmol/L (22-29); Chloride 97 mmol/L (98-107); Globulin 3.3 g/dL (1.3-4.6); Glomerular Filtration Rate 85.2 mL/min (90-130); Glucose 400 mg/dL (65-115); Osmolality Calculated 291 mOsm/kg (285-295); Potassium 4.5 mmol/L (3.5-5.1); Sodium 131 mmol/L (136-145); Total Bilirubin 1.3 mg/dL (0.15-1.2); Total Protein 6.7 g/dL (6.6-8.7)
[2022-04-27] MEDS: heparin 5,000 unit/mL INJ 1 mL 4000 UNIT IVP (05:11)
[2022-04-27] MEDS: heparin drip 25,000 UNIT/500 ML PREMIX 25.04 UNIT IV (05:17)
[2022-04-27 05:29] LABS: INR 1.23 (0.8-1.2); Partial Thromboplastin Time 24.4 SECONDS (23.9-36.7)
== END 2022-04-27 06:11 | disposition short-term general hospital (02) ==
PROVIDERS: Emergency Provider Emergency Medicine; PCP Nurse Practitioner Family
DX: I70.221 Atherosclerosis of native arteries of extremities with rest pain, right leg (principal); F17.210 Nicotine dependence, cigarettes, uncomplicated; Z95.1 Presence of aortocoronary bypass graft; I12.9 Hypertensive chronic kidney disease with stage 1 through stage 4 chronic kidney disease, or unspecified chronic kidney disease; E11.22 Type 2 diabetes mellitus with diabetic chronic kidney disease; N18.2 Chronic kidney disease, stage 2 (mild); I25.10 Atherosclerotic heart disease of native coronary artery without angina pectoris; J44.9 Chronic obstructive pulmonary disease, unspecified; E78.2 Mixed hyperlipidemia
CPT/HCPCS: 80053; 85025; 85610; 85730; 93925; 96374; 99285; J1644

== ENCOUNTER 2022-05-30 21:33 | Emergency (ER) | payer MEDICARE, MEDICAID, SELFPAY ==
[2022-05-30 21:36] VITALS: BP 119/41; PULSE 94; RESP 19; TEMP 36.4; O2SAT 97; BMI 31.1
--- NOTE | 2022-05-30 21:41 | USR_ITS ---
PROCEDURE INFORMATION: Exam: US Duplex Left Lower Extremity Arteries Or Arterial Bypass Grafts Exam date and time: 05/30/2022 10:28 PM Age: 61 years old Clinical indication: Pain; Leg, lower; Left; Additional info: Ischemia TECHNIQUE: Imaging protocol: Left Real-time duplex scan of the arteries or arterial bypass grafts of the left lower extremity with 2-D murphy scale, color Doppler flow and spectral waveform analysis. Images documented and saved. COMPARISON: US CV arterial duplex [facility] [id number] 04/27/2022 3:31 AM FINDINGS: Left external iliac artery: Occluded. Left common femoral artery: Reconstituted left common femoral artery. Dampened monophasic waveform. Left superficial femoral artery: Occluded. Left popliteal artery: Occluded. Left calf/foot arteries: Left posterior tibial and dorsalis pedis arteries were not identified. US/CV arterial duplex [facility] [id number] IMPRESSION: Occluded left lower extremity arteries from the left external iliac artery to popliteal artery, except for short segment reconstitution of left common femoral artery. Left posterior tibial and dorsalis pedis arteries were not identified.
--- NOTE | 2022-05-30 21:48 | ED_ITS ---
HPI - Fall General: Chief Complaint: Fall Stated Complaint: fall Time Seen by Provider: 05/30/22 21:37 Source: patient and EMS Mode of arrival: EMS Limitations: no limitations History of Present Illness: 61-year-old male who is here with EMS after a fall he denies any injuries from his fall he had recently had a procedure done to his right leg for peripheral vascular disease sounds like he had a graft placed and partial foot amputation due to ischemic leg he does have a cold left foot today. He is unsure how long its been going on denies any fevers. Associated symptoms-after fall: Denies abdominal pain, chest pain, headache(s) or neck pain Review of Systems Const: Denies: fever(s), chills, body aches or change in appetite Eyes: Denies: blurry vision or eye discomfort ENMT: Denies: throat pain or dental pain Card: Denies: chest pain Resp: Denies: dyspnea GI: Denies: abdominal pain, nausea, vomiting or diarrhea : Denies: dysuria Musc: Denies: neck pain or back pain Skin/Breast: Denies: rash Neuro: Denies: headache(s) Psych: Denies: depression Jon/Lymph: Denies: easy bruising All/Imm: Denies: urticaria PFSH ED PFSH: Medical History Aortic cusp regurgitation Burn of finger Bursitis CAD (coronary artery disease) Cauda equina compression Changing skin lesion Chronic back pain Chronic back pain greater than 3 months duration Chronic idiopathic constipation Chronic right ear pain Cigarette smoker motivated to quit CKD stage 2 due to type 2 diabetes mellitus Colon cancer screening COPD (chronic obstructive pulmonary disease) Coronary artery disease due to type 2 diabetes mellitus Cough DDD (degenerative disc disease), cervical Dermatitis Diabetes mellitus Diabetes type 2, uncontrolled Diabetic neuropathy Encounter for long-term (current) use of NSAIDs Encounter for long-term opiate analgesic use Environmental and seasonal allergies GERD (gastroesophageal reflux disease) Hearing loss Hyperlipidemia associated with type 2 diabetes mellitus Hypertension Left elbow pain Mixed hyperlipidemia Multiple exostoses Nicotine dependence Obesity (BMI 30.0-34.9) Oral infection Osteoarthritis, shoulder Paresthesias Peripheral arterial disease Rib pain on right side Rib pain on right side Rotator cuff disorder Shortness of breath Spinal stenosis, lumbar region with neurogenic claudication Swelling of left elbow Thoracic spine pain Tobacco dependence due to cigarettes Vitamin D deficiency Surgical History H/O total knee replacement total knee right 2017 total knee left 2017 Previous back surgery S/P CABG (coronary artery bypass graft) 2006 S/P shoulder surgery left shoulder 2007 Family History Father CAD (coronary artery disease) Cancer lung Mother Cancer breast Denies family history of Anesthesia complication Social History Smoking and tobacco status: current every day smoker cigarettes Packs smoked per day: 1 Years cigarettes smoked: 12 Quit status (tobacco): considering quitting Second hand smoke exposure: Yes Smoking risk assessment/counseling performed?: No Alcohol intake: never Desire information about alcohol rehabilitation?: No Counseling given: No Desire information about substance/drug rehabilitation?: No Counseling given: No Lives independently: Yes Household members: significant other History of recent travel: No Course Vital Signs: Vital signs: Vital Signs Temperature 97.5 F L 05/30/22 21:36 Pulse Rate 94 05/30/22 21:36 Respiratory Rate 18 05/30/22 22:15 Blood Pressure 119/41 05/30/22 21:36 Pulse Oximetry 97 05/30/22 21:36 Oxygen Delivery Me thod 05/30/22 21:36 MDM - Fall Medical Decision Making Patient presents here with ischemic limb to his left lower leg did speak to [facility] as he had his previous procedure there they do not have any beds I did speak to vascular surgeon at [facility] they do have beds will transfer there for vascular surgery patient has been stable while here did start him on heparin. Lab Data 05/30/22 21:47 05/30/22 21:47 Laboratory Results WBC 25.5 10^3/uL (4.0-10.0) H 05/30/22 21:47 RBC 5.31 10^6/uL (4.1-5.3) H 05/30/22 21:47 Hgb 15.3 g/dL (11.7-16.6) 05/30/22 21:47 Hct 48.4 % (42.0-52.0) 05/30/22 21:47 MCV 91.1 fl (80-94) 05/30/22 21:47 MCH 28.8 pg (28.0-34.0) 05/30/22 21:47 MCHC 31.6 g/dL (30.0-36.0) 05/30/22 21:47 RDW 14.8 % (12.1-15.1) 05/30/22 21:47 Plt Count 277 10^3/cmm (130-400) 05/30/22 21:47 MPV 11.0 fL (7.4-10.4) H 05/30/22 21:47 Neut % (Auto) 85.9 % 05/30/22 21:47 Lymph % (Auto) 5.3 % 05/30/22 21:47 [place] % (Auto) 6.1 % 05/30/22 21:47 Eos % (Auto) 0.2 % 05/30/22 21:47 Baso % (Auto) 0.3 % 05/30/22 21:47 Neut # (Auto) 21.88 10^3/uL (1.8-7.7) H 05/30/22 21:47 Lymph # (Auto) 1.4 10^3/uL (0.8-4.8) 05/30/22 21:47 [place] # (Auto) 1.6 10^3/uL (0.2-0.9) H 05/30/22 21:47 Eos # (Auto) 0.1 10^3/uL (0.0-0.8) 05/30/22 21:47 Baso # (Auto) 0.1 10^3/uL (0.0-0.1) 05/30/22 21:47 Nucleated RBC % (auto) 0.1 % 05/30/22 21:47 Nucleated RBCs # 0.0 /100WBC 05/30/22 21:47 Calculated Osmolality 287 mOsm/kg (285-295) 05/30/22 21:47 Calcium 9.0 mg/dL (8.5-10.5) 05/30/22 21:47 Total Bilirubin 1.1 mg/dL (0.15-1.2) 05/30/22 21:47 Alkaline Phosphatase 99 U/L (40-130) 05/30/22 21:47 Total Protein 6.7 g/dL (6.6-8.7) 05/30/22 21:47 Globulin 3.7 g/dL (1.3-4.6) 05/30/22 21:47 SARS-CoV-2 Ag (Rapid) negative (Negative) 05/30/22 21:54 Critical Care Time Critical Care Time: Critical Care Time: Yes Total Critical Care Time: 50 Attestation: The high probability of a clinically significant, sudden or life threatening deterioration of the patient's vasc system(s) required my full and direct attent ion, intervention and personal management. The critical care time is as shown. This time is in addition to time spent performing any reported procedures but includes the following: [x] Data and vital sign review and interpretation [x] Patient assessment, examination and intervention [x] Documentation [x] Medication orders and management Discharge Plan Discharge Patient Disposition: Xfer Short-Term Hosp Clinical Impression: Ischemic leg Condition: Stable Referrals: JAX Geronimo FNP [Primary Care Provider] - Coding Level of Care Code ED Funeral Pre Need Consultant for Angelica Adame
[2022-05-30 22:07] LABS: Basophils # 0.1 10^3/uL (0.0-0.1); Basophils % 0.3 %; Eosinophils # 0.1 10^3/uL (0.0-0.8); Eosinophils % 0.2 %; Hematocrit 48.4 % (42.0-52.0); Hemoglobin 15.3 g/dL (11.7-16.6); Lymphocytes # 1.4 10^3/uL (0.8-4.8); Lymphocytes % 5.3 %; Mean Corpuscular HGB Conc 31.6 g/dL (30.0-36.0); Mean Corpuscular Hemoglobin 28.8 pg (28.0-34.0); Mean Corpuscular Volume 91.1 fl (80-94); Monocytes # 1.6 10^3/uL (0.2-0.9); Monocytes % 6.1 %; Neutrophils # 21.88 10^3/uL (1.8-7.7); Neutrophils % 85.9 %; Nucleated Red Blood Cells % 0.1 %; Platelet Count 277 10^3/cmm (130-400); Red Blood Count 5.31 10^6/uL (4.1-5.3); Red Cell Distribution Width 14.8 % (12.1-15.1); White Blood Count 25.5 10^3/uL (4.0-10.0)
[2022-05-30 22:15] VITALS: RESP 18
[2022-05-30] MEDS: ondansetron 2 mg/ML SDV 2 mL 4 MG IVP (22:15)
[2022-05-30] MEDS: HYDROmorphone 1 mg/mL INJ 1 mL IVP (22:15)
[2022-05-30 22:33] LABS: SARS Covid-2 Antigen negative (Negative)
[2022-05-30 22:34] LABS: Alkaline Phosphatase 99 U/L (40-130); Creatinine Clr Calc Pharmacy 39.3424; Globulin 3.7 g/dL (1.3-4.6); Osmolality Calculated 287 mOsm/kg (285-295); Total Bilirubin 1.1 mg/dL (0.15-1.2); Total Protein 6.7 g/dL (6.6-8.7)
[2022-05-31] MEDS: heparin 5,000 unit/mL INJ 1 mL 4000 UNIT IVP (00:06)
[2022-05-31] MEDS: heparin drip 25,000 UNIT/500 ML PREMIX 25.04 UNIT IV (00:07)
[2022-05-31] MEDS: diphenhydrAMINE 50 mg/mL SDV 1mL IVP (00:08)
[2022-05-31 00:29] LABS: Alanine Aminotransferase 47 U/L (0-41); Anion Gap 30.4 (5-19); Aspartate Amino Transferase 57 U/L (0-40); Blood Urea Nitrogen 26 mg/dL (8-23); Carbon Dioxide 13 mmol/L (22-29); Chloride 92 mmol/L (98-107); Glomerular Filtration Rate 27.5 mL/min (90-130); Glucose 317 mg/dL (65-115); Potassium 5.4 mmol/L (3.5-5.1); Sodium 130 mmol/L (136-145)
[2022-05-31 01:08] VITALS: BP 137/89; PULSE 96; RESP 22; O2SAT 93
--- NOTE | 2022-06-05 20:17 | ED_ITS ---
HPI - Fall General: Chief Complaint: Fall Stated Complaint: fall Time Seen by Provider: 05/30/22 21:37 Source: patient and EMS Mode of arrival: EMS History of Present Illness: . [facility] ED PFSH: Medical History Aortic cusp regurgitation Burn of finger Bursitis CAD (coronary artery disease) Cauda equina compression Changing skin lesion Chronic back pain Chronic back pain greater than 3 months duration Chronic idiopathic constipation Chronic right ear pain Cigarette smoker motivated to quit CKD stage 2 due to type 2 diabetes mellitus Colon cancer screening COPD (chronic obstructive pulmonary disease) Coronary artery disease due to type 2 diabetes mellitus Cough DDD (degenerative disc disease), cervical Dermatitis Diabetes mellitus Diabetes type 2, uncontrolled Diabetic neuropathy Encounter for long-term (current) use of NSAIDs Encounter for long-term opiate analgesic use Environmental and seasonal allergies GERD (gastroesophageal reflux disease) Hearing loss Hyperlipidemia associated with type 2 diabetes mellitus Hypertension Left elbow pain Mixed hyperlipidemia Multiple exostoses Nicotine dependence Obesity (BMI 30.0-34.9) Oral infection Osteoarthritis, shoulder Paresthesias Peripheral arterial disease Rib pain on right side Rib pain on right side Rotator cuff disorder Shortness of breath Spinal stenosis, lumbar region with neurogenic claudication Swelling of left elbow Thoracic spine pain Tobacco dependence due to cigarettes Vitamin D deficiency Surgical History H/O total knee replacement total knee right 2017 total knee left 2017 Previous back surgery S/P CABG (coronary artery bypass graft) 2006 S/P shoulder surgery left shoulder 2007 Family History Father CAD (coronary artery disease) Cancer lung Mother Cancer breast Denies family history of Anesthesia complication Social History Smoking and tobacco status: current every day smoker cigarettes Packs smoked per day: 1 Years cigarettes smoked: 12 Quit status (tobacco): considering quitting Second hand smoke exposure: Yes Smoking risk assessment/counseling performed?: No Alcohol intake: never Desire information about alcohol rehabilitation?: No Counseling given: No Desire information about substance/drug rehabilitation?: No Counseling given: No Lives independently: Yes Household members: significant other History of recent travel: No Physical Exam Const: COMMON NORMALS: patient oriented x3 GENERAL APPEARANCE: ill appea ring HENMT: COMMON NORMALS: normocephalic and atraumatic HEAD & SCALP: normocephalic and atraumatic Eye: COMMON NORMALS: Equal, round and reactive pupils present and EOMs intact bilaterally PUPIL: Yes Equal, round and reactive pupils present Neck/C-Spine: COMMON NORMALS: full ROM and supple Chest: COMMONS NORMALS: normal inspection of the chest and normal palpation of entire chest wall Resp: COMMON NORMALS: normal respiratory effort, No retractions, No use of accessory muscles and clear to auscultation bilaterally AUSCULTATION: clear to auscultation bilaterally Cardio: COMMON NORMALS: regular rate, regular rhythm and No murmurs present (Cardio) RATE: regular rate RHYTHM: regular rhythm GI: COMMON NORMALS: Normal to inspection, nondistended, normoactive bowel sounds present, Soft to palpation, non-tender and no masses PALPATION: Yes Soft to palpation Extremity: NARRATIVE EXTREMITY EXAM: Left foot is cold to touch pulses are nonpalpable Neuro: COMMON NORMALS: patient oriented x3, moves all extremities and no focal motor deficits Psych: COMMON NORMALS: mental status grossly normal, Normal thought process present and cooperative THOUGHT PROCESS: Normal thought process present Skin: COMMON NORMALS: no rashes or lesions noted and no wounds GENERAL SKIN EXAM: no rashes or lesions noted Course Vital Signs: Vital signs: Vital Signs Temperature 97.5 F L 05/30/22 21:36 Pulse Rate 96 05/31/22 01:08 Respiratory Rate 22 H 05/31/22 01:08 Blood Pressure 137/89 05/31/22 01:08 Pulse Oximetry 93 05/31/22 01:08 Oxygen Delivery La thod 05/31/22 01:08 MDM - Fall Medical Decision Making addendum with physical exam Lab Data 05/30/22 21:47 05/30/22 21:47 Radiology Impressions Duplex Scan Lower Extremity Artery 05/30/22 21:41 IMPRESSION: Occluded left lower extremity arteries from the left external iliac artery to popliteal artery, except for short segment reconstitution of left common femoral artery. Left posterior tibial and dorsalis pedis arteries were not identified. Laboratory Results WBC 25.5 10^3/uL (4.0-10.0) H 05/30/22 21:47 RBC 5.31 10^6/uL (4.1-5.3) H 05/30/22 21:47 Hgb 15.3 g/dL (11.7-16.6) 05/30/22 21:47 Hct 48.4 % (42.0-52.0) 05/30/22 21:47 MCV 91.1 fl (80-94) 05/30/22 21:47 MCH 28.8 pg (28.0-34.0) 05/30/22 21:47 MCHC 31.6 g/dL (30.0-36.0) 05/30/22 21:47 RDW 14.8 % (12.1-15.1) 05/30/22 21:47 Plt Count 277 10^3/cmm (130-400) 05/30/22 21:47 MPV 11.0 fL (7.4-10.4) H 05/30/22 21:47 Neut % (Auto) 85.9 % 05/30/22 21:47 Lymph % (Auto) 5.3 % 05/30/22 21:47 [place] % (Auto) 6.1 % 05/30/22 21:47 Eos % (Auto) 0.2 % 05/30/22 21:47 Baso % (Auto) 0.3 % 05/30/22 21:47 Neut # (Auto) 21.88 10^3/uL (1.8-7.7) H 05/30/22 21:47 Lymph # (Auto) 1.4 10^3/uL (0.8-4.8) 05/30/22 21:47 [place] # (Auto) 1.6 10^3/uL (0.2-0.9) H 05/30/22 21:47 Eos # (Auto) 0.1 10^3/uL (0.0-0.8) 05/30/22 21:47 Baso # (Auto) 0.1 10^3/uL (0.0-0.1) 05/30/22 21:47 Nucleated RBC % (auto) 0.1 % 05/30/22 21:47 Nucleated RBCs # 0.0 /100WBC 05/30/22 21:47 Sodium 130 mmol/L (136-145) L 05/30/22 21:47 Potassium 5.4 mmol/L (3.5-5.1) H 05/30/22 21:47 Chloride 92 mmol/L (98-107) L 05/30/22 21:47 Carbon Dioxide 13 mmol/L (22-29) L 05/30/22 21:47 Anion Gap 30.4 (5-19) H 05/30/22 21:47 BUN 26 mg/dL (8-23) H 05/30/22 21:47 Creatinine 2.4 mg/dL (0.7-1.2) H 05/30/22 21:47 GFR Calculation 27.5 mL/min (90-130) L 05/30/22 21:47 Glucose 317 mg/dL (65-115) H 05/30/22 21:47 Calculated Osmolality 287 mOsm/kg (285-295) 05/30/22 21:47 Calcium 9.0 mg/dL (8.5-10.5) 05/30/22 21:47 Total Bilirubin 1.1 mg/dL (0.15-1.2) 05/30/22 21:47 AST 57 U/L (0-40) H 05/30/22 21:47 ALT 47 U/L (0-41) H 05/30/22 21:47 Alkaline Phosphatase 99 U/L (40-130) 05/30/22 21:47 Total Protein 6.7 g/dL (6.6-8.7) 05/30/22 21:47 Albumin 3.0 g/dL (3.5-5.2) L 05/30/22 21:47 Globulin 3.7 g/dL (1.3-4.6) 05/30/22 21:47 SARS-CoV-2 Ag (Rapid) negative (Negative) 05/30/22 21:54 Discharge Plan Discharge Patient Disposition: Xfer Short-Term Hosp Clinical Impression: Ischemic leg Condition: Stable Referrals: JAX Geronimo, [employer] [Primary Care Provider] - Coding Level of Care Code ED House Worker for Angelica Adame
== END 2022-05-31 01:55 | disposition short-term general hospital (02) ==
PROVIDERS: Emergency Provider Emergency Medicine; PCP Nurse Practitioner Family
DX: I70.222 Atherosclerosis of native arteries of extremities with rest pain, left leg (principal); F17.210 Nicotine dependence, cigarettes, uncomplicated
CPT/HCPCS: 80053; 85025; 87426; 93926; 96365; 96375; 99285; J1170; J1200; J1644; J2405